=== PATIENT | female | born 1930 | race Caucasian/White ===

== ENCOUNTER 2017-01-03 12:03 | Inpatient (IN) | payer BC, OTHER ==
[2017-01-03] MEDS ORDERED: ACETAMINOPHEN 325 MG TABLET (FP) PO ONE (12:24)
[2017-01-03] MEDS ORDERED: ACETAMINOPHEN 325 MG TABLET (FP) ONE (12:41)
[2017-01-03 13:19] LABS: MCH 27.7 pg (25.7-33.7); MCHC 33.1 g/dl (32.0-36.0); MEAN CELL VOLUME 83.7 fl (80-96); MEAN PLT VOLUME 8.7 fl (7.5-11.1); PLATELET COUNT 194 K/MM3 (134-434); RDW 14.4 % (11.6-15.6); WHITE BLOOD COUNT 12.5 K/mm3 (4.0-10.8)
[2017-01-03 13:59] LABS: PLATELET ESTIMATE ADEQUATE (NORMAL)
[2017-01-03 14:00] LABS: BASOPHIL (MANUAL) 1 % (0-2.0)
--- NOTE | 2017-01-03 14:08 | PDOC ---
History of Present Illness - General Chief Complaint: Respiratory Stated Complaint: FEVER,CHILLS AND SHAKES Time Seen by Provider: 01/03/17 12:05 History Source: Patient, Primary Care Provider Exam Limitations: No Limitations - History of Present Illness Initial Comments: 01/03/17 14:02 CHIEF COMPLAINT: Fever and shaking chills since yesterday HISTORY OF PRESENT ILLNESS: This is an 86-year-old female a history of hypertension and diabetes mellitus who lives independently and continues to drive. She developed symptoms of fever and shaking chills since yesterday afternoon around 5 PM. She felt a little bit weak, but denied any other complaints. Specifically, there was no headache, no earache, no sore throat, no chest pain, and no shortness of breath. There was no nausea, vomiting, or diarrhea. There was no dysuria or frequency of urination. She does have a chronic cough with some white sputum for the past 2 months, but that has not changed. She also has chronic swelling of her ankles with redness of the ankles, for which she takes a water pill. Today she went to see her primary care physician, Dr. Steward in the office above the [facility] pharmacy, and was advised to come to the emergency department for fever workup. Dr. Steward called me and advised that there was no clear source of the fever. Dr. Steward further states that the erythema of the ankles is chronic. She was concerned about possible flu, although the patient does not have any upper respiratory symptoms beyond the cough that has been present for 2 months. REVIEW OF SYSTEMS: GENERAL/CONSTITUTIONAL: Positive fever and chills. Positive weakness. HEAD, EYES, EARS, NOSE AND THROAT: No change in vision. No ear pain or discharge. No sore throat. CARDIOVASCULAR: No chest pain or shortness of breath. Positive history of hypertension. RESPIRATORY: Positive slight cough for 2 months with minor amounts of white sputum. No wheezing or hemoptysis. No pleuritic pain. GASTROINTESTINAL: No nausea, vomiting, diarrhea or constipation. No rectal bleeding. GENITOURINARY: No dysuria, frequency, or change in urination. Positive history of Escherichia coli UTI per Dr. Steward, last treated several months ago. MUSCULOSKELETAL: No joint or muscle swelling or pain. No neck or back pain. SKIN AND BREASTS: Positive chronic swelling and erythema of both ankles. No other rash or bruising. NEUROLOGIC: No headache, vertigo, loss of consciousness, or loss of sensation. PSYCHIATRIC: No depression or anxiety. ENDOCRINE: No increased thirst. No abnormal weight change. Positive history of diabetes mellitus. HEMATOLOGIC/LYMPHATIC: No anemia, easy bleeding, or history of blood clots. Positive history of chronic ankle edema on a diuretic. ALLERGIC/IMMUNOLOGIC: No hives or skin allergy. No latex allergy. Positive history of chronic ankle cellulitis. 01/03/17 14:07 Dr. Steward stated that the temperature was initially normal in the office but went up to 103.0. The patient was then sent to the hospital by ambulance. Past History - Past Medical History Allergies/Adverse Reactions: Allergies Allergy/AdvReac Type Severity Reaction Status Date / Time No Known Allergies Allergy Verified 01/03/17 12:05 Home Medications: Ambulatory Orders Furosemide [Lasix -] 40 mg PO BID 09/26/12 Losartan Potassium [Cozaar] 50 mg PO DAILY 09/26/12 Potassium Chloride [Klor-Con M20] 20 meq PO BID 09/02/13 Atorvastatin Ca [Lipitor] 20 mg PO HS 01/03/17 Ketoconazole 2% Cream [Nizoral 2% Cream -] 1 applic TP DAILY 01/03/17 Levothyroxine [Synthroid -] 75 mcg PO DAILY 01/03/17 Nystatin Powder [Nystop Topical Powder -] 0 gm TP BID 01/03/17 Anemia: Yes Asthma: No Cancer: No Cardiac Disorders: Yes (CAD) CVA: No COPD: No CHF: No Dementia: No Diabetes: Yes GI Disorders: Yes (SBO, VENTRAL HERNIA) Disorders: Yes (UTI) HTN: Yes Hypercholesterolemia: Yes Liver Disease: No Seizures: No Thyroid Disease: Yes (HYPOTHYROID) - Surgical History Abdominal Surgery: No Appendectomy: Yes Cardiac Surgery: No Cholecystectomy: No Lung Surgery: No Orthopedic Surgery: No - Suicide/Smoking/Psychosocial Hx Smoking Status: No Smoking History: Former smoker Have you smoked in the past 12 months: No Number of Cigarettes Smoked Daily: 0 If you are a former smoker, when did you quit?: YEARS AGO PER PT Information on smoking cessation initiated: No Hx Alcohol Use: No Drug/Substance Use Hx: No Substance Use Type: None Hx Substance Use Treatment: No *Physical Exam - Vital Signs Last Vital Signs Temp Pulse Resp BP Pulse Ox 99.4 F 81 20 131/40 97 01/03/17 13:56 01/03/17 13:56 01/03/17 13:56 01/03/17 13:56 01/03/17 13:56 - Physical Exam Comments: 01/03/17 14:08 GENERAL: The patient is awake, alert, and fully oriented, in no acute distress. She is remarkably sharp for her age of 86. HEAD: Normal with no signs of trauma. EYES: Pupils equal, round and reactive to light, positive lens implants, extraocular movements intact, sclera anicteric, conjunctiva clear. ENT: Ears normal, nares patent, oropharynx clear without exudates. Moist mucous membranes. NECK: Normal range of motion, supple without lymphadenopathy, JVD, or masses. LUNGS: Breath sounds equal, clear to auscultation bilaterally. No wheezes, and no crackles. No cough noted during my examination. HEART: Regular rate and rhythm, normal S1 and S2 without murmur, rub or gallop. ABDOMEN: Soft, only obese, nontender, normoactive bowel sounds. No guarding, no rebound. No masses. Negative Durham's sign. EXTREMITIES: Positive bilateral pitting ankle edema. No clubbing or cyanosis. Positive erythema with warmth of both ankles. NEUROLOGICAL: Cranial nerves intact. Normal speech, normal gait. Able to transfer from ambulance stretcher to hospital stretcher without difficulty. PSYCH: Normal mood, normal affect. SKIN: Warm, Dry, normal turgor. Positive erythema and edema of both ankles. Heart Score/ECG Review - ECG Impressions Comment:: 01/03/17 14:11 Twelve-lead EKG was performed and then reviewed by me. The rhythm is normal sinus rhythm at a rate of 82 bpm. There is first-degree AV block. The axis is normal. The QRS and QT intervals are normal. There is no ST elevation or depression. There is low voltage and nonspecific T-wave flattening diffusely. Impression: Normal sinus rhythm with first-degree AV block, low voltage and nonspecific T-wave flattening. 01/03/17 14:15 There are no old EKGs available for comparison. ED Treatment Course - LABORATORY CBC & Chemistry Diagram: 01/03/17 12:54 01/03/17 12:45 - ADDITIONAL ORDERS Additional order review: 01/03/17 12:54 RBC 4.56 MCV 83.7 MCHC 33.1 RDW 14.4 MPV 8.7 Neutrophils % No Result Required. Lymphocytes % No Result Required. - RADIOLOGY Radiology Studies Ordered: Category Date Time Status CHEST PA & LAT [RAD] Stat Radiology 01/03/17 12:25 Taken - Medications Given in the ED: ED Medications Discontinued Medications Generic Name Dose Route Start Last Admin Trade Name Lucy PRN Reason Stop Dose Admin Acetaminophen 650 mg 01/03/17 12:24 01/03/17 12:54 Tylenol - PO 01/03/17 12:25 650 mg ONCE ONE Administration Medical Decision Making - Medical Decision Making 01/03/17 15:33 Patient is an 86-year-old woman with history of hypertension, diabetes mellitus on oral agents, and chronic cellulitis of the ankles secondary to venous stasis disease. Patient is followed by Dr. Steward at [place]. She was in her usual state of health, living independently, until 5 PM yesterday when she developed shaking chills and fever. She also had some symptoms of mild weakness. There was no focal symptoms related to pneumonia, UTI, and no change in her chronic cellulitis. At Dr. Steward's office she was initially 99 but spiked to 103 with shaking chills. She was sent to the ED by ambulance for fever workup. The patient does note a chronic cough 2 months with scant white sputum. That has not changed in the recent days. She denies any urinary tract symptoms. She denies any change in her erythema at the ankles. On examination, the lungs were clear. The mucous membranes were without signs of infection. The abdomen was obese but benign. Extremities were notable for chronic edema with some pitting and significant erythema and increased warmth of both ankles. Fever workup was instituted. Blood and urine cultures were sent. Lactate was assessed and was not elevated at 1.5. White blood cell count is notable for elevation to 12.5 with increased neutrophils to 88%. Chemistry is unremarkable. Urinalysis shows positive nitrites and positive leukocyte esterase but only 4-6 WBCs per high-power field. Chest x-ray showed cardiomegaly but no focal infiltrates. Differential diagnosis at this point is urinary tract infection versus cellulitis. Patient was started on ceftriaxone 1 g IV stat dose along with vancomycin 1 g IV stat dose. These antibiotics were given to cover both urinary tract infection as well as staph or strep from cellulitis. His blood pressure was initially elevated, but on repeat was in the low normal range. Given her chronic edema, a 500 mL normal saline bolus was given. Blood pressure is on continuous non-invasive monitoring. Patient was endorsed to Dr. Wilhelm's team through the IM resident. *DC/Admit/Observation/Transfer Diagnosis at time of Disposition: Cellulitis Qualifiers: Site of cellulitis: extremity Site of cellulitis of extremity: lower extremity Laterality: unspecified laterality Qualified Code(s): L03.119 - Cellulitis of unspecified part of limb; L03.119 - Cellulitis of unspecified part of limb UTI (urinary tract infection) Qualifiers: Urinary tract infection type: acute cystitis Hematuria presence: without hematuria Qualified Code(s): N30.00 - Acute cystitis without hematuria; N30.00 - Acute cystitis without hematuria Sepsis Qualifiers: Sepsis type: sepsis due to unspecified organism Qualified Code(s): A41.9 - Sepsis, unspecified organism; A41.9 - Sepsis, unspecified organism; A41.9 - Sepsis, unspecified organism - Discharge Dispostion Condition at time of disposition: Fair Admit: Yes Decision to Admit order Date/Time: 01/03/17 15:39 Dr. Wilhelm's IM team, endorsed to her resident.
[2017-01-03 14:11] LABS: PH,URINE 7.5 (4.5-8); URINE APPEARANCE Slightly; URINE BILIRUBIN Negative (NEGATIVE); URINE BLOOD Negative (NEGATIVE); URINE GLUCOSE (UA) Negative (NEGATIVE); URINE KETONE Negative (NEGATIVE); URINE NITRITE Positive (NEGATIVE); URINE PROTEIN Negative (NEGATIVE)
[2017-01-03 14:12] LABS: URINE COLOR YELLOW; URINE LEUK ESTERASE 1+ (NEGATIVE)
[2017-01-03 14:27] LABS: VENOUS BLOOD GAS HCO3 25.6 meq/L (19-25)
[2017-01-03 14:28] LABS: VENOUS PH 7.31 (7.32-7.42)
[2017-01-03 14:34] LABS: URINE BACTERIA MANY /hpf (NEGATIVE)
[2017-01-03 14:35] LABS: URINE RBC NONE SEEN /hpf (0-3)
[2017-01-03 14:42] LABS: CREATININE 0.7 mg/dl (0.6-1.3); GLUCOSE,RANDOM 128 mg/dl (74-106)
[2017-01-03 14:43] LABS: ALBUMIN 3.5 g/dl (3.5-5.0); ANION GAP 9 (8-16); BILIRUBIN,TOTAL 0.9 mg/dl (0.2-1.0); CALCIUM 8.6 mg/dl (8.4-10.2); CO2 29 mmol/L (22-28); SGOT/AST 28 U/L (10-42); SGPT/ALT 22 U/L (10-40)
[2017-01-03 14:44] LABS: ALK PHOS 61 U/L (32-92)
[2017-01-03] MEDS ORDERED: CEFTRIAXONE 1 GM in DEXTROSE 5%-WATER - 100 ML IVPB ONE (14:55)
[2017-01-03] MEDS ORDERED: VANCOMYCIN 1,000 MG in DEXTROSE 5%-WATER - 250 ML IVPB ONE (14:56)
[2017-01-03] MEDS ORDERED: cefTRIAXone SODIUM 1 GM VIAL ONE (15:02)
[2017-01-03] MEDS ORDERED: VANCOMYCIN 1,000 MG VIAL (RESTRICTED TO ID ONLY) ONE (15:02)
[2017-01-03] MEDS ORDERED: SODIUM CHLORIDE 500 ML IV STA (15:18)
[2017-01-03 17:35] VITALS: BMI 34.7
--- NOTE | 2017-01-03 19:42 | HP ---
CHIEF COMPLAINT: Fever, Chills, Rigors PCP: Dr. Steward ([place]) HISTORY OF PRESENT ILLNESS: This is a 86 y/o woman with a past medical history of UTIs. Who presents to the ED from her PMD's office with fever T Max 103, chills, and rigors x today. Patient was reports having fever and chills at home all day. Patient reports having a non-productive cough x 2 months. Patient denies dizziness, BRUNO, SOB, CP , AP, N/V/D, constipation, dysuria. ER course was notable for: (1) Sepsis- T Max 102.9, WBC 12.5, Neutrophils 88 (2) UA- +Nitrates, +1 Leukocyte Esterase, Many Bacteria (3) Recent Travel: None PAST MEDICAL HISTORY: HTN DM Hypothyroid UTIs Chronic swelling/erythema ankles/?legs SBO Ventral Hernia PAST SURGICAL HISTORY: Appendectomy Social History: Smoking: Former Alcohol: None Drugs: None Lives alone, fully independent Family History: Non-Contributory Allergies No Known Allergies Allergy (Verified 01/03/17 12:05) HOME MEDICATIONS: Home Medications Medication Instructions Recorded Furosemide [Lasix -] 40 mg PO BID 09/26/12 Losartan Potassium [Cozaar] 50 mg PO DAILY 09/26/12 Potassium Chloride [Klor-Con M20] 20 meq PO BID 09/02/13 Atorvastatin Ca [Lipitor] 20 mg PO HS 01/03/17 Ketoconazole 2% Cream [Nizoral 2% 1 applic TP DAILY 01/03/17 Cream -] Levothyroxine [Synthroid -] 75 mcg PO DAILY 01/03/17 Metformin HCl [Metformin HCl ER] 1,000 mg PO DAILY 01/03/17 Nystatin Powder [Nystop Topical 0 gm TP BID 01/03/17 Powder -] REVIEW OF SYSTEMS CONSTITUTIONAL: fever, chills Absent: diaphoresis, generalized weakness, malaise, loss of appetite, weight change HEENT: Absent: rhinorrhea, nasal congestion, throat pain, throat swelling, difficulty swallowing, mouth swelling, ear pain, eye pain, visual changes CARDIOVASCULAR: Absent: chest pain, syncope, palpitations, irregular heart rate, lightheadedness , peripheral edema RESPIRATORY: cough Absent: shortness of breath, dyspnea with exertion, orthopnea, wheezing, stridor, hemoptysis GASTROINTESTINAL: Absent: abdominal pain, abdominal distension, nausea, vomiting, diarrhea, constipation, melena, hematochezia GENITOURINARY: Absent: dysuria, frequency, urgency, hesitancy, hematuria, flank pain, genital pain MUSCULOSKELETAL: Absent: myalgia, arthralgia, joint swelling, back pain, neck pain SKIN: Absent: rash, itching, pallor HEMATOLOGIC/IMMUNOLOGIC: Absent: easy bleeding, easy bruising, lymphadenopathy, frequent infections ENDOCRINE: Absent: unexplained weight gain, unexplained weight loss, heat intolerance, cold intolerance NEUROLOGIC: Absent: headache, focal weakness or paresthesias, dizziness, unsteady gait, seizure, mental status changes, bladder or bowel incontinence PSYCHIATRIC: Absent: anxiety, depression, suicidal or homicidal ideation, hallucinations. PHYSICAL EXAMINATION GENERAL: Awake, alert, and fully oriented, in no acute distress. HEAD: Normal with no signs of trauma. EYES: Pupils equal, round and reactive to light, extraocular movements intact, sclera anicteric, conjunctiva clear. No lid lag. EARS, NOSE, THROAT: Ears normal, nares patent, oropharynx clear without exudates. Dry mucous membranes. NECK: Normal range of motion, supple without lymphadenopathy, JVD, or masses. LUNGS: Breath sounds equal, clear to auscultation bilaterally. No wheezes, and no crackles. No accessory muscle use. HEART: Regular rate and rhythm, normal S1 and S2 without murmur, rub or gallop. ABDOMEN: Soft, nontender, not distended, normoactive bowel sounds, no guarding, no rebound, no masses. No hepatomegaly or splenomegaly. MUSCULOSKELETAL: Normal range of motion at all joints. No bony deformities or tenderness. No CVA tenderness. UPPER EXTREMITIES: 2+ pulses, warm, well-perfused. No cyanosis. No clubbing. No peripheral edema. LOWER EXTREMITIES: 2+ pulses, warm, well-perfused. No calf tenderness. +2 pitting bilaterally from below the knee to ankle peripheral edema. NEUROLOGICAL: Cranial nerves II-XII intact. Normal speech. Gait not observed. PSYCHIATRIC: Cooperative. Good eye contact. Appropriate mood and affect. SKIN: Grossly erythematous to bilateral lower extremities. warm, dry, normal turgor, no rashes, no lesions noted, normal capillary refill. Laboratory Results - last 24 hr 01/03/17 01/03/17 01/03/17 12:45 12:45 12:54 WBC 12.5 H D RBC 4.56 Hgb 12.6 Hct 38.2 MCV 83.7 MCH 27.7 MCHC 33.1 RDW 14.4 Plt Count 194 MPV 8.7 Neutrophils % No Result Required. Neutrophils % (Manual) 88 H Band Neuts % (Manual) 3 Lymphocytes % No Result Required. Lymphocytes % (Manual) 5 L Monocytes % (Manual) 3 L Basophils % (Manual) 1 Platelet Estimate Adequate VBG pH POC VBG pCO2 POC VBG pO2 Mixed VBG HCO3 Sodium 139 Potassium 4.8 Chloride 101 Carbon Dioxide 29 H Anion Gap 9 BUN 15 Creatinine 0.7 Creat Clearance w eGFR > 60 POC Glucometer Random Glucose 128 H Lactic Acid 1.5 Calcium 8.6 Total Bilirubin 0.9 D AST 28 D ALT 22 D Alkaline Phosphatase 61 D Total Protein 7.0 Albumin 3.5 Urine Color Urine Appearance Urine pH Ur Specific [place] Urine Protein Urine Glucose (UA) Urine Ketones Urine Blood Urine Nitrite Urine Bilirubin Urine Urobilinogen Ur Leukocyte Esterase Urine RBC Urine WBC Ur Epithelial Cells Urine Bacteria 01/03/17 01/03/17 01/03/17 13:15 13:50 20:50 WBC RBC Hgb Hct MCV MCH MCHC RDW Plt Count MPV Neutrophils % Neutrophils % (Manual) Band Neuts % (Manual) Lymphocytes % Lymphocytes % (Manual) Monocytes % (Manual) Basophils % (Manual) Platelet Estimate VBG pH 7.31 L POC VBG pCO2 53.0 H POC VBG pO2 21.2 L Mixed VBG HCO3 25.6 H Sodium Potassium Chloride Carbon Dioxide Anion Gap BUN Creatinine Creat Clearance w eGFR POC Glucometer 133 Random Glucose Lactic Acid Calcium Total Bilirubin AST ALT Alkaline Phosphatase Total Protein Albumin Urine Color Yellow Urine Appearance Slightly Urine pH 7.5 Ur Specific [place] 1.020 Urine Protein Negative Urine Glucose (UA) Negative Urine Ketones Negative Urine Blood Negative Urine Nitrite Positive Urine Bilirubin Negative Urine Urobilinogen 1.0 Ur Leukocyte Esterase 1+ H Urine RBC None seen Urine WBC 4-6 Ur Epithelial Cells None seen Urine Bacteria Many ASSESSMENT/PLAN: This is a 86 y/o woman with a PMHx of: HTN, DM, Hypothyroid, UTIs. SBO, Ventral Hernia. Admitted for Sepsis secondary to UTI, Lower Extremity Cellulitis for further evaluation of their emergent condition. Plan: 1. Sepsis - Likely secondary to UTI vs Cellulitis lower legs - qSOFA 0 - SIRS Criteria Met III- T 102.9, P 98, WBC 12.5 - +leukocytosis with shift - T Max 102.9~ 99.5 after antipyretics/fluid bolus - Blood Cultures-pending - Urine Culture-pending - Influenza swab- negative - Lactic Acid- wnl - Ceftriaxone and Vancomycin given in ED for coverage UTI, staph or strep ( cellulitis), will continue - Appreciate ID Consult - Monitor vitals - Tylenol prn - Monitor CBC, BMP 2. UTI - +E Coli hx - UC-pending - Continue Ceftriaxone - Vitals - Tylenol 3. ?Cellulitis of Lower Extremities - Hx Chronic erythema/swelling - On exam B/L ext +warm grossly erythematous - Given Vancomycin in ED, will continue - Will consult ID for recommendations - Elevate extremities - Monitor vitals - Monitor CBC 4. Hypertension - Monitor BP - Continue Cozaar - Monitor renal function 5. Diabetes Mellitus - BGMs - ISS - Will hold Metformin 2/2 Sepsis concern for Lactic Acidosis 6. Hyperlipidemia - Continue Lipitor - Monitor LFTs 7. Hypothyroid - TSH in am - Continue Levothyroxine 8. FEN - Tolerates PO Fluids - Replete lytes - Low Na, Diabetic Diet 9. DVT Prophylaxis - OOB - Heparin SQ Code Status: Full Code Dispo: Requires Inpatient Care Problem List - Problem (1) Sepsis Code(s): A41.9 - SEPSIS, UNSPECIFIED ORGANISM Qualifiers: Sepsis type: sepsis due to unspecified organism Qualified Code(s): A41.9 - Sepsis, unspecified organism; A41.9 - Sepsis, unspecified organism; A41.9 - Sepsis, unspecified organism (2) UTI (urinary tract infection) Code(s): N39.0 - URINARY TRACT INFECTION, SITE NOT SPECIFIED Qualifiers: Urinary tract infection type: acute cystitis Hematuria presence: without hematuria Qualified Code(s): N30.00 - Acute cystitis without hematuria; N30.00 - Acute cystitis without hematuria (3) Cellulitis Code(s): L03.90 - CELLULITIS, UNSPECIFIED Qualifiers: Site of cellulitis: extremity Site of cellulitis of extremity: lower extremity Laterality: unspecified laterality Qualified Code(s): L03.119 - Cellulitis of unspecified part of limb; L03.119 - Cellulitis of unspecified part of limb (4) HTN (hypertension) Code(s): I10 - ESSENTIAL (PRIMARY) HYPERTENSION (5) Diabetes mellitus Code(s): E11.9 - TYPE 2 DIABETES MELLITUS WITHOUT COMPLICATIONS (6) Hypothyroid Code(s): E03.9 - HYPOTHYROIDISM, UNSPECIFIED (7) DVT prophylaxis Code(s): [id number] - Visit type - Emergency Visit Emergency Visit: Yes ED Registration Date: 01/03/17 Care time: The patient presented to the Emergency Department on the above date and was hospitalized for further evaluation of their emergent condition. - New Patient This patient is new to me today: Yes Date on this admission: 01/03/17 - Critical Care Critical Care patient: No
[2017-01-03] MEDS ORDERED: ACETAMINOPHEN 325 MG TABLET (FP) PO PRN (19:46)
[2017-01-03] MEDS: ATORVASTATIN CA 20 MG TABLET (FP) PO SCH (21:15)
[2017-01-03] MEDS: POTASSIUM CHLORIDE TABS 20 MEQ TABLET.ER (FP) PO SCH (21:15)
[2017-01-03] MEDS: HEPARIN NA (PORCINE) 5,000 UNITS/ML 1ML VIAL SQ SCH (21:15)
[2017-01-03] MEDS: INSULIN SLIDING SCALE (NOVOLOG) 1 VIAL SQ SCH (21:23)
[2017-01-04] MEDS: LEVOTHYROXINE NA 75 MCG TABLET (FP) PO SCH (06:30)
[2017-01-04] MEDS: INSULIN SLIDING SCALE (NOVOLOG) 1 VIAL SQ SCH ×4 (06:30→21:22)
[2017-01-04] MEDS: FUROSEMIDE 40 MG/4 ML INJECTABLE VIAL IVPUSH SCH ×2 (06:30→13:59)
[2017-01-04 07:44] LABS: BASOPHIL 0.2 % (0-2.0); EOSINOPHIL 0.2 % (0-4.5); MCH 28.3 pg (25.7-33.7); MEAN CELL VOLUME 83.2 fl (80-96); MEAN PLT VOLUME 8.1 fl (7.5-11.1); NEUTROPHILS 86.3 % (42.8-82.8); PLATELET COUNT 146 K/MM3 (134-434); RDW 14.6 % (11.6-15.6); WHITE BLOOD COUNT 7.2 K/mm3 (4.0-10.8)
[2017-01-04 08:08] LABS: ANION GAP 6 (8-16); CO2 27 mmol/L (22-28); CREATININE 0.7 mg/dl (0.6-1.3); GLUCOSE,RANDOM 108 mg/dl (74-106); MAGNESIUM 1.6 mg/dL (1.8-2.4)
--- NOTE | 2017-01-04 08:41 | PN ---
Progress Note (short form) - Note Progress Note: ID Consult dictated Bilateral LE cellulitis Possible sepsis secondary to skin source Pending cultures continue empiric ceftriaxone/ vancomycin Elevation
[2017-01-04] MEDS ORDERED: MAGNESIUM SULF 50% (8.12 MEQ/2 ML-1 GM VIAL) IVPB ONE (09:00)
--- NOTE | 2017-01-04 09:24 | CONS ---
DATE OF CONSULTATION: DATE OF DICTATION: 01/04/2017 REASON FOR CONSULTATION: The patient is an 86-year-old female diabetic evaluated for sepsis. HISTORY OF PRESENT ILLNESS: Patient states that she was feeling well until the evening of admission. She developed abrupt onset of fever and shaking chills. She had presented to her primary care physician where she was noted to have a temperature of 103. She was referred to the emergency room. Patient was found on examination to have bilateral lower extremity erythema, warmth, and swelling. She was empirically treated with ceftriaxone and vancomycin for presumed cellulitis. The patient states that several days ago she was picking dry skin off her lower extremities bilaterally. She denies any traumatic injury to her lower extremities. No insect or animal bites or scratches. She denies any history of serious soft tissue infection requiring hospitalization or history of MRSA. She has had no recent hospital admissions. PAST MEDICAL HISTORY: Positive for hypertension, diabetes, coronary artery disease, hypothyroidism, urinary tract infections. PAST SURGICAL HISTORY: Status post ruptured appendix, history of partial small-bowel obstruction in 2012, ventral hernia, sections. ALLERGIES: No known allergies. MEDICATIONS: Include Lasix, Cozaar, Lipitor, Synthroid. SOCIAL HISTORY: She lives at home in the community. She is independent. Former smoker. No history of alcohol abuse. SYSTEMS REVIEW:Neurologic: No loss of consciousness, seizure activity, focal weakness. Cardiac: Negative chest pain or palpitations. Respiratory: Negative cough or sputum production. Gastrointestinal: Negative vomiting or diarrhea. Genitourinary: Negative for a urinary tract infection. LABORATORY DATA: White count on admission 12.5 with a left shift, hematocrit 32.6, platelet count 146. BUN 15, creatinine 0.7. Urinalysis: 4 to 6 white cells. Liver enzymes normal. Chest x-ray shows no acute infiltrate. PHYSICAL EXAMINATION:General: The patient is out of bed to chair. She is awake and alert, in no acute distress, not acutely toxic appearing. Vital Signs: Temperature 98.5, T-max 102.9, blood pressure 100/40, pulse 68, regular, respiration 20 per minute. HEENT: Sclerae anicteric. Cardiac: Heart sounds S1, S2. Lungs: Clear bilaterally. No rhonchi, rales, or wheezing. Abdomen: Obese, soft, nontender. Extremities: Bilateral lower extremity edema 2+. There is confluent erythema and warmth involving both lower extremities, left greater than right, from the area of the foot to the mid tibia. The area involved is warm, slightly tender to touch. There is no crepitus or fluctuance. No lymphangitic streaming. IMPRESSION: 1. Bilateral lower extremity cellulitis. 2. Fever and shaking chills, possible sepsis secondary to skin source. 3. History of diabetes mellitus. RECOMMENDATIONS: Await sepsis workup. Empiric antibiotic coverage with ceftriaxone and vancomycin. Elevation of lower extremities bilaterally. Will follow. Thank you for the kind referral. SADIE CRUZ M.D. [id number]
[2017-01-04] MEDS: CEFTRIAXONE 50 ML IVPB SCH (09:28)
[2017-01-04] MEDS: HEPARIN NA (PORCINE) 5,000 UNITS/ML 1ML VIAL SQ SCH ×2 (09:29→21:14)
[2017-01-04] MEDS: POTASSIUM CHLORIDE TABS 20 MEQ TABLET.ER (FP) PO SCH ×2 (09:29→21:14)
[2017-01-04] MEDS: LOSARTAN POTASSIUM 50 MG TABLET (FP) PO SCH (09:29)
[2017-01-04] MEDS ORDERED: CEFTRIAXONE 1 G/50 ML PREMIX 50 ML IVPB SCH (10:00)
[2017-01-04] MEDS ORDERED: VANCOMYCIN 1,000 MG in DEXTROSE 5%-WATER - 250 ML IVPB SCH (10:00)
[2017-01-04] MEDS ORDERED: CEFTRIAXONE 1 GM in DEXTROSE 5%-WATER - 50 ML IVPB SCH (10:00)
--- NOTE | 2017-01-04 10:14 | PN ---
Physical Exam: SUBJECTIVE: Patient seen and examined, sitting in bedside chair, reports improvement to bilateral lower extremity erythema, patient denies any tactile fever. patient does report her cough is much improved since yesterday. OBJECTIVE: patient is a 86 y/o female with a past medical history of hypertensoin, NIDDM, hypothyroid, chronic urinary tract infection, SBO, ventral hernia. patient was admitted from the emergency department for sepsis, urinary tract infection and cellulitis. Vital Signs Period Temp Pulse Resp BP Sys/Anderson Pulse Ox Last 24 Hr 98.5 F-100.3 F 68-74 18-20 100-126/40-42 95-98 GENERAL: The patient is awake, alert, and fully oriented, in no acute distress. HEAD: Normal with no signs of trauma. EYES: PERRL, extraocular movements intact, sclera anicteric, conjunctiva clear. No ptosis. ENT: Ears normal, nares patent, oropharynx clear without exudates, moist mucous membranes. NECK: Trachea midline, full range of motion, supple. + JVD LUNGS: Breath sounds equal, clear to auscultation bilaterally, no wheezes, no crackles, no accessory muscle use. HEART: Regular rate and rhythm, S1, S2 without murmur, rub or gallop. ABDOMEN: Soft, nontender, nondistended, normoactive bowel sounds, no guarding, no rebound, no hepatosplenomegaly, no masses. EXTREMITIES: 2+ pulses, warm, well-perfused, +2 edema to bilateral lower extremities, venous stasis changes, circumferential edema to distal extremities. NEUROLOGICAL: Cranial nerves II through XII grossly intact. Normal speech, gait not observed. PSYCH: Normal mood, normal affect. SKIN: Warm, dry, normal turgor, no rashes or lesions noted Laboratory Results - last 24 hr 01/03/17 01/04/17 01/04/17 20:50 06:00 06:30 WBC 7.2 D RBC 3.92 Hgb 11.1 D Hct 32.6 MCV 83.2 MCH 28.3 MCHC 34.0 RDW 14.6 Plt Count 146 D MPV 8.1 Neutrophils % 86.3 H Lymphocytes % 7.8 L D Monocytes % 5.5 Eosinophils % 0.2 D Basophils % 0.2 Sodium Potassium Chloride Carbon Dioxide Anion Gap BUN Creatinine POC Glucometer 133 88 Random Glucose Calcium Phosphorus Magnesium 01/04/17 06:30 WBC RBC Hgb Hct MCV MCH MCHC RDW Plt Count MPV Neutrophils % Lymphocytes % Monocytes % Eosinophils % Basophils % Sodium 136 Potassium 3.7 D Chloride 103 Carbon Dioxide 27 Anion Gap 6 L BUN 15 Creatinine 0.7 POC Glucometer Random Glucose 108 H Calcium 8.0 L Phosphorus 3.0 Magnesium 1.6 L Laboratory Tests 01/03/17 13:50 Urine Color Yellow Urine Appearance Slightly Urine pH 7.5 Ur Specific [place] 1.020 Urine Protein Negative Urine Glucose (UA) Negative Urine Ketones Negative Urine Blood Negative Urine Nitrite Positive Urine Bilirubin Negative Urine Urobilinogen 1.0 Ur Leukocyte Esterase 1+ H Urine RBC None seen Urine WBC 4-6 Ur Epithelial Cells None seen Urine Bacteria Many Active Medications Generic Name Dose Route Start Last Admin Trade Name Freq PRN Reason Stop Dose Admin Acetaminophen 650 mg 01/03/17 19:46 01/03/17 21:38 Tylenol - PO 650 mg Q6H PRN Administration FEVER OR PAIN Atorvastatin Calcium 20 mg 01/03/17 22:00 01/03/17 21:15 Lipitor - PO 20 mg HS DICK Administration Furosemide 40 mg 01/04/17 06:00 01/04/17 06:30 Lasix Injection - IVPUSH 40 mg BID@0600,1400 DICK Administration Heparin Sodium (Porcine) 5,000 unit 01/03/17 22:00 01/04/17 09:29 Heparin - SQ 5,000 unit BID DICK Administration Ceftriaxone Sodium 50 mls @ 100 mls/hr 01/04/17 10:00 01/04/17 09:28 Rocephin 1gm Ivpb (Pre-Docked) IVPB 100 mls/hr DAILY DICK Administration Vancomycin HCl 1,250 mg/ 250 mls @ 250 mls/2 hr 01/04/17 10:00 Dextrose IVPB Q24H DICK Insulin Aspart 1 vial 01/03/17 22:00 01/04/17 06:30 Novolog Vial Sliding Scale - SQ Not Given ACHS [facility] Protocol Levothyroxine Sodium 75 mcg 01/04/17 07:00 01/04/17 06:30 Synthroid - PO 75 mcg DAILY@0700 DICK Administration Losartan Potassium 50 mg 01/04/17 10:00 01/04/17 09:29 Cozaar - PO 50 mg DAILY DICK Administration Potassium Chloride 20 meq 01/03/17 22:00 01/04/17 09:29 K-Dur - PO 20 meq BID DICK Administration Microbiology 01/03/17 12:45 Blood - Peripheral Venous Blood Culture - Preliminary NO GROWTH OBTAINED AFTER 24 HOURS, INCUBATION TO CONTINUE FOR 4 DAYS. 01/03/17 14:05 Nasopharyngeal Swab Influenza Types A,B Antigen (MAHOGANY) - Final , negative 01/03/17 14:05 Nasopharyngeal Swab - Final ASSESSMENT/PLAN: 1. ID:Sepsis - secondary for UTI vs Cellulitis lower extremities - pending urine and blood cultures - continue vancomycin (01/03- ) and rocephin (01/03 -), until final cultures are resulted to narrow down antibiotics - leukocytosis resolved no bandemia noted, low grade temp noted - ID (Yann) consulted and followed 2. card congestive heart failure - elevated BNP, 1043, baseline 136, higher than baseline, lasix 40mg QD, monitor renal function - pending echo - appreciate cardiology input 4. Hypertension - Continue Cozaar, strict b/p monitoring - Monitor renal function 5. Diabetes Mellitus - pending hemoglobin a1c, continue fingersticks achs 6. Hyperlipidemia - Continue Lipitor, LFTs WNL 7. Hypothyroid - TSH wnl, Continue Levothyroxine f/e/n - replete magnesium - low sodium diet ppx - heparin sq - pepcid - PT dispo: requires inpatient admission Visit type - Emergency Visit Emergency Visit: Yes ED Registration Date: 01/03/17 Care time: The patient presented to the Emergency Department on the above date and was hospitalized for further evaluation of their emergent condition. - New Patient This patient is new to me today: Yes Date on this admission: 01/04/17 - Critical Care Critical Care patient: No - Discharge Referral Referred to [facility] Med P.C.: No
[2017-01-04] MEDS ORDERED: POTASSIUM CHLORIDE TABS 20 MEQ TABLET.ER (FP) PO ONE (10:30)
[2017-01-04] MEDS: VANCOMYCIN 1,250 MG in DEXTROSE 5%-WATER - 250 ML IVPB SCH (11:19)
[2017-01-04] MEDS ORDERED: INSULIN (NOVOLOG) ASPART 100 UNITS/ML 10ML VIAL ONE ×2 (11:57→21:21)
[2017-01-04 12:54] LABS: THYROXINE (T4) 8.3 ug/dl (4.8-13.9)
[2017-01-04 13:00] LABS: THYROID STIMULATING HORMONE 0.47 uIU/ml (0.358-3.74)
[2017-01-04] MEDS: LACTOBACILLUS ACIDOPHILUS 1 EACH TAB (FP) PO SCH (13:59)
--- NOTE | 2017-01-04 16:42 | EKG ---
Test Reason : Blood Pressure : / mmHG Vent. Rate : 082 BPM Atrial Rate : 082 BPM P-R Int : 230 ms QRS Dur : 082 ms QT Int : 374 ms P-R-T Axes : 071 036 052 degrees QTc Int : 436 ms SINUS RHYTHM WITH 1ST DEGREE A-V BLOCK LOW VOLTAGE QRS NONSPECIFIC T WAVE ABNORMALITY POOR R WAVE PROGRESSION NO PREVIOUS ECGS AVAILABLE Confirmed by MD PEREZ MARJORY ([id number]) on 01/04/2017 4:42:32 PM Referred By: WOODY IVAN Confirmed By:RADHA PEREZ MD
[2017-01-04] MEDS: FAMOTIDINE 20 MG TABLET PO SCH (21:14)
[2017-01-04] MEDS: ATORVASTATIN CA 20 MG TABLET (FP) PO SCH (21:14)
[2017-01-05] MEDS: LEVOTHYROXINE NA 75 MCG TABLET (FP) PO SCH (06:58)
[2017-01-05] MEDS: INSULIN SLIDING SCALE (NOVOLOG) 1 VIAL SQ SCH ×4 (07:00→21:48)
[2017-01-05] MEDS: LACTOBACILLUS ACIDOPHILUS 1 EACH TAB (FP) PO SCH (09:40)
[2017-01-05] MEDS: FAMOTIDINE 20 MG TABLET PO SCH ×2 (09:41→21:32)
[2017-01-05] MEDS: HEPARIN NA (PORCINE) 5,000 UNITS/ML 1ML VIAL SQ SCH ×2 (09:41→21:33)
[2017-01-05] MEDS: LOSARTAN POTASSIUM 50 MG TABLET (FP) PO SCH (09:41)
[2017-01-05] MEDS: POTASSIUM CHLORIDE TABS 20 MEQ TABLET.ER (FP) PO SCH ×2 (09:41→21:32)
[2017-01-05] MEDS: FUROSEMIDE 40 MG/4 ML INJECTABLE VIAL IVPUSH SCH (09:41)
--- NOTE | 2017-01-05 09:41 | PN ---
Physical Exam: SUBJECTIVE: Patient seen and examined. Feels better, although legs more painful than yesterday. OBJECTIVE: Vital Signs Period Temp Pulse Resp BP Sys/Anderson Pulse Ox Last 24 Hr 98.0 F-98.8 F 60-62 16-19 101-117/37-53 99-99 GENERAL: The patient is awake, alert, and fully oriented, in no acute distress. HEAD: Normal with no signs of trauma. EYES: PERRL, extraocular movements intact, sclera anicteric, conjunctiva clear. No ptosis. ENT: Ears normal, nares patent, oropharynx clear without exudates, moist mucous membranes. NECK: Trachea midline, full range of motion, supple. LUNGS: Breath sounds equal, clear to auscultation bilaterally, no wheezes, no crackles, no accessory muscle use. HEART: Regular rate and rhythm, S1, S2 without murmur, rub or gallop. ABDOMEN: Soft, non-tender, reducible ventral hernia. rebound, no hepatosplenomegaly, no masses. EXTREMITIES: 2+ LE edema, erythema extending from midfoot to mid tibia bilaterally, DP/PT pulses 1+, bilateral calf tenderness. NEUROLOGICAL: Cranial nerves II through XII grossly intact. Normal speech, gait not observed. PSYCH: Normal mood, normal affect. SKIN: Warm, dry, normal turgor. Laboratory Results - last 24 hr 01/04/17 01/04/17 01/04/17 06:30 07:30 07:30 POC Glucometer Hemoglobin A1c % 7.3 H D B-Natriuretic Peptide 1043.50 H TSH 0.47 Cancelled 01/04/17 01/04/17 01/04/17 11:21 16:38 21:19 POC Glucometer 152 115 192 Hemoglobin A1c % B-Natriuretic Peptide TSH 01/05/17 06:57 POC Glucometer 121 Hemoglobin A1c % B-Natriuretic Peptide TSH Active Medications Generic Name Dose Route Start Last Admin Trade Name Freq PRN Reason Stop Dose Admin Acetaminophen 650 mg 01/03/17 19:46 01/03/17 21:38 Tylenol - PO 650 mg Q6H PRN Administration FEVER OR PAIN Atorvastatin Calcium 20 mg 01/03/17 22:00 01/04/17 21:14 Lipitor - PO 20 mg HS DICK Administration Famotidine 20 mg 01/04/17 22:00 01/04/17 21:14 Pepcid - PO 20 mg BID DICK Administration Furosemide 40 mg 01/05/17 10:00 Lasix Injection - IVPUSH DAILY DICK Heparin Sodium (Porcine) 5,000 unit 01/03/17 22:00 01/04/17 21:14 Heparin - SQ 5,000 unit BID DICK Administration Ceftriaxone Sodium 50 mls @ 100 mls/hr 01/04/17 10:00 01/04/17 09:28 Rocephin 1gm Ivpb (Pre-Docked) IVPB 100 mls/hr DAILY DICK Administration Vancomycin HCl 1,250 mg/ 250 mls @ 250 mls/2 hr 01/04/17 10:00 01/04/17 11:19 Dextrose IVPB 250 mls/2 hr Q24H DICK Administration Insulin Aspart 1 vial 01/03/17 22:00 01/05/17 07:00 Novolog Vial Sliding Scale - SQ Not Given ACHS [facility] Protocol Lactobacillus Acidophilus 1 tab 01/04/17 13:15 01/04/17 13:59 Bacid - PO 1 tab DAILY DICK Administration Levothyroxine Sodium 75 mcg 01/04/17 07:00 01/05/17 06:58 Synthroid - PO 75 mcg DAILY@0700 DICK Administration Losartan Potassium 50 mg 01/04/17 10:00 01/04/17 09:29 Cozaar - PO 50 mg DAILY DICK Administration Potassium Chloride 20 meq 01/03/17 22:00 01/04/17 21:14 K-Dur - PO 20 meq BID DICK Administration Microbiology Microbiology 01/03/17 13:50 Urine - Urine Clean Catch Urine Culture - Preliminary Lactose Fermenting Neg Bacilli Lactose Fermenting Neg Bacilli#2 01/03/17 12:50 Blood - Peripheral Venous Blood Culture - Preliminary NO GROWTH OBTAINED AFTER 24 HOURS, INCUBATION TO CONTINUE FOR 4 DAYS. 01/03/17 12:45 Blood - Peripheral Venous Blood Culture - Preliminary NO GROWTH OBTAINED AFTER 24 HOURS, INCUBATION TO CONTINUE FOR 4 DAYS. 01/03/17 14:05 Nasopharyngeal Swab Influenza Types A,B Antigen (MAHOGANY) - Final 01/03/17 14:05 Nasopharyngeal Swab - Final Imaging: Echo 01/03: Echodensity seen at base of left atrium of unclear etiology, possibly calcification. Mild LVH. LVSF low-normal. Elevated RVSP. ASSESSMENT/PLAN: 86 year old female with a history of HTN, NIDDM, hypothyroidism , recurrent UTIs, SBO, and ventral hernia admitted with UTI and bilateral LE cellulitis. 1. ID:Sepsis - secondary to UTI vs bilat LE cellulitis - urine culture growing lactose fermenting neg bacilli x 2 - continue Vancomycin (01/03- ) and Rocephin (01/03 -) pending final culture results - leukocytosis, resolved - Obtain bilat duplex LE u/s given significant calf tenderness on exam - ID following - Cardiology evaluation given infections and hypodensity on echo of uncertain etiology/significance 2. CHF - continue Lasix 40mg po daily - cardiology evaluation pending 3. HTN - holding Cozaar today for BP 112/37 4. DM - A1C 7.3 - hold Metformin while inpatient - ISS - FSACHS - diabetic diet 6. Dyslipidemia - continue Lipitor 7. Hypothyroidism - continue levothyroxine 8. F/E/N - Mg repleted yesterday, repeat today - low sodium diet 9. Ppx - Sqh - No indication for GI ppx Dispo: Await blood culture results given shaking chills. Visit type - Emergency Visit Emergency Visit: Yes ED Registration Date: 01/03/17 Care time: The patient presented to the Emergency Department on the above date and was hospitalized for further evaluation of their emergent condition. - New Patient This patient is new to me today: Yes Date on this admission: 01/06/17 - Critical Care Critical Care patient: No - Discharge Referral Referred to [facility] Med P.C.: No
[2017-01-05] MEDS: CEFTRIAXONE 50 ML IVPB SCH (09:42)
[2017-01-05] MEDS: VANCOMYCIN 1,250 MG in DEXTROSE 5%-WATER - 250 ML IVPB SCH (10:22)
[2017-01-05] MEDS: MINERAL OIL/PET HY-PHL TOPICAL OINTMENT 454 GM JAR TP SCH ×2 (10:30→21:31)
[2017-01-05 11:18] LABS: EOSINOPHIL 4.1 % (0-4.5); MCH 27.9 pg (25.7-33.7); MCHC 33.1 g/dl (32.0-36.0); MEAN CELL VOLUME 84.1 fl (80-96); MEAN PLT VOLUME 8.7 fl (7.5-11.1); NEUTROPHILS 67.7 % (42.8-82.8); PLATELET COUNT 133 K/MM3 (134-434); WHITE BLOOD COUNT 4.8 K/mm3 (4.0-10.8)
[2017-01-05 11:42] LABS: ANION GAP 5 (8-16); CALCIUM 8.2 mg/dl (8.4-10.2); CO2 27 mmol/L (22-28); CREATININE 0.6 mg/dl (0.6-1.3); GLUCOSE,RANDOM 177 mg/dl (74-106); MAGNESIUM 2.1 mg/dL (1.8-2.4)
--- NOTE | 2017-01-05 11:44 | CON.CARD ---
Cardiology Consult (text) - Consultation Consultation Note: CC: LE edema/diastolic HF exacerbation 86 y/o with h/o htn, likely diastolic dysfunction/chronic LE edema with venous stasis changes and recent chronic cellulitis, NIDDM, hypothyroid, ventral hernia , UTIs who p/w fever/sepsis and found to have cellulitis and UTI. S/p 500 cc IVF on 01/03. s/p lasix 40 mg IV x 2 01/04 Now transitioned to lasix 40 mg IV daily Who presents to the ED from her PMD's office with fever T Max 103, chills, and rigors. + non-productive cough x 2 months. + LE edema with erythema and calor on presentation. LE edema significantly improved over the past few days on IV lasix. + reasonable functional status - lives independently and performs ADL's without limitation. Patient denies dizziness, palps, orthoponea, SOB, CP, bleeding, transient neurologic symptoms. Denies h/a, AP, N/V/D, constipation, visual disturbances. PAST MEDICAL HISTORY: per hpi PAST SURGICAL HISTORY: Appendectomy Social History: Smoking: Former smoker Alcohol: None Drugs: None Lives alone, fully independent Family History: No premature cad. ros: per hpi Ambulatory Orders Furosemide [Lasix -] 40 mg PO BID 09/26/12 Losartan Potassium [Cozaar] 50 mg PO DAILY 09/26/12 Potassium Chloride [Klor-Con M20] 20 meq PO BID 09/02/13 Atorvastatin Ca [Lipitor] 20 mg PO HS 01/03/17 Ketoconazole 2% Cream [Nizoral 2% Cream -] 1 applic TP DAILY 01/03/17 Levothyroxine [Synthroid -] 75 mcg PO DAILY 01/03/17 Metformin HCl [Metformin HCl ER] 1,000 mg PO DAILY 01/03/17 Nystatin Powder [Nystop Topical Powder -] 0 gm TP BID 01/03/17 Current Medications Acetaminophen (Tylenol -) 650 mg PO Q6H PRN PRN Reason: FEVER OR PAIN Last Admin: 01/03/17 21:38 Dose: 650 mg Atorvastatin Calcium (Lipitor -) 20 mg PO HS REPLACED BY [facility] Last Admin: 01/04/17 21:14 Dose: 20 mg Emollient Ointment (Aquaphor -) 1 applic TP BID REPLACED BY [facility] Last Admin: 01/05/17 10:30 Dose: 1 applic Famotidine (Pepcid -) 20 mg PO BID REPLACED BY [facility] Last Admin: 01/05/17 09:41 Dose: 20 mg Furosemide (Lasix Injection -) 40 mg IVPUSH DAILY REPLACED BY [facility] Last Admin: 01/05/17 09:41 Dose: 40 mg Heparin Sodium (Porcine) (Heparin -) 5,000 unit SQ BID REPLACED BY [facility] Last Admin: 01/05/17 09:41 Dose: 5,000 unit Ceftriaxone Sodium (Rocephin 1gm Ivpb (Pre-Docked)) 50 mls @ 100 mls/hr IVPB DAILY REPLACED BY [facility] Last Admin: 01/05/17 09:42 Dose: 100 mls/hr Vancomycin HCl 1,250 mg/ (Dextrose) 250 mls @ 250 mls/2 hr IVPB Q24H REPLACED BY [facility] Last Admin: 01/05/17 10:22 Dose: 250 mls/2 hr Insulin Aspart (Novolog Vial Sliding Scale -) 1 vial SQ ACHS REPLACED BY [facility] PRN Reason: Protocol Last Admin: 01/05/17 07:00 Dose: Not Given Lactobacillus Acidophilus (Bacid -) 1 tab PO DAILY REPLACED BY [facility] Last Admin: 01/05/17 09:40 Dose: 1 tab Levothyroxine Sodium (Synthroid -) 75 mcg PO DAILY@0700 REPLACED BY [facility] Last Admin: 01/05/17 06:58 Dose: 75 mcg Losartan Potassium (Cozaar -) 50 mg PO DAILY REPLACED BY [facility] Last Admin: 01/05/17 09:41 Dose: 50 mg Potassium Chloride (K-Dur -) 20 meq PO BID REPLACED BY [facility] Last Admin: 01/05/17 09:41 Dose: 20 meq 01/03/17 12:05 Temperature 102.9 F H Vital Signs - 24 hr 01/04/17 01/04/17 01/04/17 14:00 19:31 22:00 Temperature 98.0 F 98.7 F Pulse Rate 61 62 Respiratory 16 16 19 Rate Blood Pressure 101/53 117/38 O2 Sat by Pulse 99 99 99 Oximetry (%) 01/05/17 06:00 Temperature 98.8 F Pulse Rate 60 Respiratory 19 Rate Blood Pressure 112/37 O2 Sat by Pulse Oximetry (%) Intake & Output 01/03/17 01/04/17 01/05/17 01/06/17 07:59 07:59 07:59 07:59 Intake Total 700 1125 475 Output Total 1200 1700 Balance -500 -575 475 Weight 202 lb 5 oz 199 lb 4 oz nad, calm jvd flat, neck supple ctab, nl effort rrr nl s1, s2 no mrg pmi non-displaced pmi + bs soft nt nd, + soft large ventral hernia diminished dp/pt + varicosities + calor, erythema, trace edema of LE no cyanosis, clubbing aaox3 no jaundice, diaphoresis. CBC, BMP 01/05/17 11:05 01/05/17 11:05 Microbiology 01/03/17 13:50 Urine - Urine Clean Catch Urine Culture - Preliminary Lactose Fermenting Neg Bacilli Lactose Fermenting Neg Bacilli#2 Laboratory Tests 01/03/17 01/03/17 01/03/17 12:45 12:45 12:54 Band Neuts % (Manual) 3 Lactic Acid 1.5 Magnesium Total Bilirubin 0.9 D AST 28 D ALT 22 D Alkaline Phosphatase 61 D Albumin 3.5 TSH 01/04/17 01/04/17 01/05/17 06:30 06:30 11:05 Band Neuts % (Manual) Lactic Acid Magnesium 1.6 L 2.1 D Total Bilirubin AST ALT Alkaline Phosphatase Albumin TSH 0.47 06/07/10 01/04/17 16:30 06:30 B-Natriuretic Peptide 136 H* 1043.50 H EKG: SR with av delay, nssttw abnormalities. no acute ischemic changes. echo 12/2016: tds. Mild asym LVH. EF 50-55. nl rv size/fn. borderline lae. echodensity/calcification at base of left atrium. severe mac. mod tr. moderate phtn. ao root calcification. Mild posterior pericardial effusion. cxr: no acute pathology. prominent pericardial fat pad. 01/05 vascular u/s: no dvt. 86 y/o with h/o htn, likely diastolic dysfunction/chronic LE edema with venous stasis changes and recent chronic cellulitis, NIDDM, hypothyroid, ventral hernia , UTIs who p/w fever/sepsis and found to have cellulitis and UTI. diastolic dysfunction/chronic LE edema with venous stasis changes - acute exacerbation - initially s/p 500 cc IVF. s/p lasix 40 mg IV x 2 01/04. Now transitioned to lasix 40 mg IV daily - 01/05: approching euvolemia. May be able to transition to po regimen tomorrow. In light of predominantly right sided congestion, would recommend torsemide 40 mg daily (prior outpatient regimen lasix 40 bid). - echo report reviewed. - daily standing weights, bmp, i/o's. Monitor k on standing repletion. HTN - bp on low end with diastolic pressures in the 30's-40's. Would titrate down losartan dose. - con't statin and add asa for primary prevention.
[2017-01-05] MEDS: ATORVASTATIN CA 20 MG TABLET (FP) PO SCH (21:32)
[2017-01-06] MEDS: LEVOTHYROXINE NA 75 MCG TABLET (FP) PO SCH (06:07)
[2017-01-06] MEDS: INSULIN SLIDING SCALE (NOVOLOG) 1 VIAL SQ SCH ×5 (08:37→22:38)
[2017-01-06 09:02] LABS: BASOPHIL 0.7 % (0-2.0); MCH 28.1 pg (25.7-33.7); MCHC 33.3 g/dl (32.0-36.0); MEAN CELL VOLUME 84.5 fl (80-96); MEAN PLT VOLUME 9.3 fl (7.5-11.1); NEUTROPHILS 59.1 % (42.8-82.8); PLATELET COUNT 146 K/MM3 (134-434); RDW 14.8 % (11.6-15.6); WHITE BLOOD COUNT 4.4 K/mm3 (4.0-10.8)
[2017-01-06 09:12] LABS: ANION GAP 6 (8-16); CALCIUM 8.4 mg/dl (8.4-10.2); CO2 25 mmol/L (22-28); CREATININE 0.6 mg/dl (0.6-1.3); GLUCOSE,RANDOM 109 mg/dl (74-106)
[2017-01-06] MEDS: FUROSEMIDE 40 MG/4 ML INJECTABLE VIAL IVPUSH SCH (09:29)
[2017-01-06] MEDS: LACTOBACILLUS ACIDOPHILUS 1 EACH TAB (FP) PO SCH (09:31)
[2017-01-06] MEDS: MINERAL OIL/PET HY-PHL TOPICAL OINTMENT 454 GM JAR TP SCH ×2 (09:31→21:18)
[2017-01-06] MEDS: ASPIRIN 81 MG CHEWABLE TABLETS PO SCH (09:31)
[2017-01-06] MEDS: HEPARIN NA (PORCINE) 5,000 UNITS/ML 1ML VIAL SQ SCH ×2 (09:31→21:18)
[2017-01-06] MEDS: POTASSIUM CHLORIDE TABS 20 MEQ TABLET.ER (FP) PO SCH (09:32)
[2017-01-06] MEDS: CEFTRIAXONE 50 ML IVPB SCH (09:32)
[2017-01-06] MEDS: FAMOTIDINE 20 MG TABLET PO SCH ×2 (09:32→21:17)
--- NOTE | 2017-01-06 09:32 | PN ---
Physical Exam: SUBJECTIVE: Patient seen and examined. Less pain in legs, feels overall well. OBJECTIVE: Vital Signs Period Temp Pulse Resp BP Sys/Anderson Pulse Ox Last 24 Hr 97.6 F-98.6 F 56-62 18-20 109-139/31-50 96-98 GENERAL: The patient is awake, alert, and fully oriented, in no acute distress. HEAD: Normal with no signs of trauma. EYES: PERRL, extraocular movements intact, sclera anicteric, conjunctiva clear. No ptosis. ENT: Ears normal, nares patent, oropharynx clear without exudates, moist mucous membranes. NECK: Trachea midline, full range of motion, supple. LUNGS: Breath sounds equal, clear to auscultation bilaterally, no wheezes, no crackles, no accessory muscle use. HEART: Regular rate and rhythm, S1, S2 without murmur, rub or gallop. ABDOMEN: Soft, non-tender, reducible ventral hernia. rebound, no hepatosplenomegaly, no masses. EXTREMITIES: DP/PT pulses 1+, warm, erythema from midfoot to mid tibia (improved ), 1+ edema (improved). NEUROLOGICAL: Cranial nerves II through XII grossly intact. Normal speech, gait not observed. PSYCH: Normal mood, normal affect. SKIN: Warm, dry, normal turgor, no rashes or lesions noted Laboratory Results - last 24 hr 01/05/17 01/05/17 01/05/17 11:05 11:05 16:02 WBC 4.8 D RBC 3.99 Hgb 11.1 Hct 33.6 MCV 84.1 MCH 27.9 MCHC 33.1 RDW 15.0 Plt Count 133 L MPV 8.7 Neutrophils % 67.7 D Lymphocytes % 18.1 D Monocytes % 9.1 Eosinophils % 4.1 D Basophils % 1.0 D Sodium 136 Potassium 4.2 Chloride 104 Carbon Dioxide 27 Anion Gap 5 L BUN 15 Creatinine 0.6 POC Glucometer 212 Random Glucose 177 H D Calcium 8.2 L Magnesium 2.1 D 01/05/17 01/06/17 01/06/17 21:37 05:48 06:00 WBC 4.4 RBC 3.89 Hgb 10.9 Hct 32.8 MCV 84.5 MCH 28.1 MCHC 33.3 RDW 14.8 Plt Count 146 MPV 9.3 Neutrophils % 59.1 Lymphocytes % 23.3 D Monocytes % 10.9 H Eosinophils % 6.0 H Basophils % 0.7 Sodium Potassium Chloride Carbon Dioxide Anion Gap BUN Creatinine POC Glucometer 201 109 Random Glucose Calcium Magnesium 01/06/17 06:00 WBC RBC Hgb Hct MCV MCH MCHC RDW Plt Count MPV Neutrophils % Lymphocytes % Monocytes % Eosinophils % Basophils % Sodium 141 Potassium 5.0 Chloride 110 H Carbon Dioxide 25 Anion Gap 6 L BUN 13 Creatinine 0.6 POC Glucometer Random Glucose 109 H D Calcium 8.4 Magnesium 2.0 Active Medications Generic Name Dose Route Start Last Admin Trade Name Freq PRN Reason Stop Dose Admin Acetaminophen 650 mg 01/03/17 19:46 01/03/17 21:38 Tylenol - PO 650 mg Q6H PRN Administration FEVER OR PAIN Aspirin 81 mg 01/06/17 10:00 Asa - PO DAILY DICK Atorvastatin Calcium 20 mg 01/03/17 22:00 01/05/17 21:32 Lipitor - PO 20 mg HS DICK Administration Emollient Ointment 1 applic 01/05/17 10:15 01/05/17 21:31 Aquaphor - TP 1 applic BID DICK Administration Famotidine 20 mg 01/04/17 22:00 01/05/17 21:32 Pepcid - PO 20 mg BID DICK Administration Furosemide 40 mg 01/05/17 10:00 01/05/17 09:41 Lasix Injection - IVPUSH 40 mg DAILY DICK Administration Heparin Sodium (Porcine) 5,000 unit 01/03/17 22:00 01/05/17 21:33 Heparin - SQ 5,000 unit BID DICK Administration Ceftriaxone Sodium 50 mls @ 100 mls/hr 01/04/17 10:00 01/05/17 09:42 Rocephin 1gm Ivpb (Pre-Docked) IVPB 100 mls/hr DAILY DICK Administration Vancomycin HCl 1,250 mg/ 250 mls @ 250 mls/2 hr 01/04/17 10:00 01/05/17 10:22 Dextrose IVPB 250 mls/2 hr Q24H DICK Administration Insulin Aspart 1 vial 01/03/17 22:00 01/06/17 08:37 Novolog Vial Sliding Scale - SQ Not Given ACHS DICK Protocol Lactobacillus Acidophilus 1 tab 01/04/17 13:15 01/05/17 09:40 Bacid - PO 1 tab DAILY DICK Administration Levothyroxine Sodium 75 mcg 01/04/17 07:00 01/06/17 06:07 Synthroid - PO 75 mcg DAILY@0700 DICK Administration Losartan Potassium 25 mg 01/06/17 10:00 Cozaar - PO DAILY DICK Potassium Chloride 20 meq 01/03/17 22:00 01/05/17 21:32 K-Dur - PO 20 meq BID DICK Administration Microbiology 01/03/17 13:50 Urine - Urine Clean Catch Urine Culture - Final Klebsiella Pneumoniae Escherichia Coli 01/03/17 12:50 Blood - Peripheral Venous Blood Culture - Preliminary NO GROWTH OBTAINED AFTER 48 HOURS, INCUBATION TO CONTINUE FOR 3 DAYS. 01/03/17 12:45 Blood - Peripheral Venous Blood Culture - Preliminary NO GROWTH OBTAINED AFTER 48 HOURS, INCUBATION TO CONTINUE FOR 3 DAYS. 01/03/17 14:05 Nasopharyngeal Swab Influenza Types A,B Antigen (MAHOGANY) - Final 01/03/17 14:05 Nasopharyngeal Swab - Final IMAGING: Echo 01/03: Echodensity seen at base of left atrium of unclear etiology, possibly calcification. Mild LVH. LVSF low-normal. Elevated RVSP. ASSESSMENT/PLAN: 86 year old female with a history of HTN, NIDDM, hypothyroidism , recurrent UTIs, SBO, and ventral hernia admitted with UTI and bilateral LE cellulitis. 1. ID:Sepsis - secondary to UTI vs bilat LE cellulitis - urine culture growing Klebsiella pneumoniae and E coli, sensitivities pending - continue Vancomycin (01/03- ) and Rocephin (01/03 -) pending final culture results - leukocytosis, resolved - Obtain bilat duplex LE u/s given significant calf tenderness on exam - ID following - Cardiology reviewed echocardiogram and findings not concerning for endocarditis 2. CHF - continue Lasix 40mg po daily - cardiology evaluation pending 3. HTN -At goal, continue Cozaar 4. DM - A1C 7.3 - hold Metformin while inpatient - ISS - FSACHS - diabetic diet 6. Dyslipidemia - continue Lipitor 7. Hypothyroidism - continue levothyroxine 8. F/E/N - Mg repleted yesterday, repeat today - low sodium diet 9. Ppx - Sqh - No indication for GI ppx Dispo: Requires inpatient services.
[2017-01-06] MEDS ORDERED: LOSARTAN POTASSIUM 25 MG TABLET PO SCH (10:00)
[2017-01-06] MEDS ORDERED: INSULIN (NOVOLOG) ASPART 100 UNITS/ML 10ML VIAL ONE ×2 (11:36→16:33)
[2017-01-06] MEDS: VANCOMYCIN 1,250 MG in DEXTROSE 5%-WATER - 250 ML IVPB SCH (12:30)
[2017-01-06] MEDS: ATORVASTATIN CA 20 MG TABLET (FP) PO SCH (21:17)
[2017-01-07] MEDS: INSULIN SLIDING SCALE (NOVOLOG) 1 VIAL SQ SCH ×2 (06:45→11:20)
[2017-01-07] MEDS: LEVOTHYROXINE NA 75 MCG TABLET (FP) PO SCH (06:45)
[2017-01-07 06:51] VITALS: TEMP 97.8
--- NOTE | 2017-01-07 08:13 | PN ---
Physical Exam: SUBJECTIVE: Patient seen and examined OBJECTIVE: Vital Signs Period Temp Pulse Resp BP Sys/Anderson Pulse Ox Last 24 Hr 97.5 F-97.8 F 55-98 16-18 114-167/37-68 96-98 GENERAL: The patient is awake, alert, and fully oriented, in no acute distress. HEAD: Normal with no signs of trauma. EYES: PERRL, extraocular movements intact, sclera anicteric, conjunctiva clear. No ptosis. ENT: Ears normal, nares patent, oropharynx clear without exudates, moist mucous membranes. NECK: Trachea midline, full range of motion, supple. LUNGS: Breath sounds equal, clear to auscultation bilaterally, no wheezes, no crackles, no accessory muscle use. HEART: Regular rate and rhythm, S1, S2 without murmur, rub or gallop. ABDOMEN: Soft, nontender, nondistended, normoactive bowel sounds, no guarding, no rebound, no hepatosplenomegaly, no masses. EXTREMITIES: 2+ pulses, warm, well-perfused, no edema. NEUROLOGICAL: Cranial nerves II through XII grossly intact. Normal speech, gait not observed. PSYCH: Normal mood, normal affect. SKIN: Warm, dry, normal turgor, no rashes or lesions noted Laboratory Results - last 24 hr 01/06/17 01/06/17 01/06/17 06:00 06:00 11:33 WBC 4.4 RBC 3.89 Hgb 10.9 Hct 32.8 MCV 84.5 MCH 28.1 MCHC 33.3 RDW 14.8 Plt Count 146 MPV 9.3 Neutrophils % 59.1 Lymphocytes % 23.3 D Monocytes % 10.9 H Eosinophils % 6.0 H Basophils % 0.7 Sodium 141 Potassium 5.0 Chloride 110 H Carbon Dioxide 25 Anion Gap 6 L BUN 13 Creatinine 0.6 POC Glucometer 179 Random Glucose 109 H D Calcium 8.4 Magnesium 2.0 Vancomycin Pre-Dose 01/06/17 01/06/17 01/06/17 16:31 21:55 Unknown WBC RBC Hgb Hct MCV MCH MCHC RDW Plt Count MPV Neutrophils % Lymphocytes % Monocytes % Eosinophils % Basophils % Sodium Potassium Chloride Carbon Dioxide Anion Gap BUN Creatinine POC Glucometer 167 164 Random Glucose Calcium Magnesium Vancomycin Pre-Dose 12.366 H 01/07/17 06:32 WBC RBC Hgb Hct MCV MCH MCHC RDW Plt Count MPV Neutrophils % Lymphocytes % Monocytes % Eosinophils % Basophils % Sodium Potassium Chloride Carbon Dioxide Anion Gap BUN Creatinine POC Glucometer 116 Random Glucose Calcium Magnesium Vancomycin Pre-Dose Active Medications Generic Name Dose Route Start Last Admin Trade Name Jemalq PRN Reason Stop Dose Admin Acetaminophen 650 mg 01/03/17 19:46 01/03/17 21:38 Tylenol - PO 650 mg Q6H PRN Administration FEVER OR PAIN Aspirin 81 mg 01/06/17 10:00 01/06/17 09:31 Asa - PO 81 mg DAILY DICK Administration Atorvastatin Calcium 20 mg 01/03/17 22:00 01/06/17 21:17 Lipitor - PO 20 mg HS DICK Administration Emollient Ointment 1 applic 01/05/17 10:15 01/06/17 21:18 Aquaphor - TP 1 applic BID DICK Administration Famotidine 20 mg 01/04/17 22:00 01/06/17 21:17 Pepcid - PO 20 mg BID DICK Administration Furosemide 40 mg 01/05/17 10:00 01/06/17 09:29 Lasix Injection - IVPUSH 40 mg DAILY DICK Administration Heparin Sodium (Porcine) 5,000 unit 01/03/17 22:00 01/06/17 21:18 Heparin - SQ 5,000 unit BID DICK Administration Ceftriaxone Sodium 50 mls @ 100 mls/hr 01/04/17 10:00 01/06/17 09:32 Rocephin 1gm Ivpb (Pre-Docked) IVPB 100 mls/hr DAILY DICK Administration Vancomycin HCl 1,250 mg/ 250 mls @ 250 mls/2 hr 01/04/17 10:00 01/06/17 12:30 Dextrose IVPB 250 mls/2 hr Q24H DICK Administration Insulin Aspart 1 vial 01/03/17 22:00 01/07/17 06:45 Novolog Vial Sliding Scale - SQ Not Given ACHS DICK Protocol Lactobacillus Acidophilus 1 tab 01/04/17 13:15 01/06/17 09:31 Bacid - PO 1 tab DAILY DICK Administration Levothyroxine Sodium 75 mcg 01/04/17 07:00 01/07/17 06:45 Synthroid - PO 75 mcg DAILY@0700 DICK Administration Losartan Potassium 25 mg 01/06/17 10:00 01/06/17 09:32 Cozaar - PO 25 mg DAILY DICK Administration ASSESSMENT/PLAN:
--- NOTE | 2017-01-07 08:53 | PN ---
Progress Note, Physician History of Present Illness: Awake, alert OOB in chair C/O minimal discomfort L LE No fever/ chills No urinary tract symptoms - Current Medication List Current Medications: Active Medications Acetaminophen (Tylenol -) 650 mg PO Q6H PRN PRN Reason: FEVER OR PAIN Last Admin: 01/03/17 21:38 Dose: 650 mg Aspirin (Asa -) 81 mg PO DAILY [facility] Last Admin: 01/06/17 09:31 Dose: 81 mg Atorvastatin Calcium (Lipitor -) 20 mg PO HS DICK Last Admin: 01/06/17 21:17 Dose: 20 mg Emollient Ointment (Aquaphor -) 1 applic TP BID [facility] Last Admin: 01/06/17 21:18 Dose: 1 applic Famotidine (Pepcid -) 20 mg PO BID [facility] Last Admin: 01/06/17 21:17 Dose: 20 mg Furosemide (Lasix Injection -) 40 mg IVPUSH DAILY [facility] Last Admin: 01/06/17 09:29 Dose: 40 mg Heparin Sodium (Porcine) (Heparin -) 5,000 unit SQ BID [facility] Last Admin: 01/06/17 21:18 Dose: 5,000 unit Ceftriaxone Sodium (Rocephin 1gm Ivpb (Pre-Docked)) 50 mls @ 100 mls/hr IVPB DAILY [facility] Last Admin: 01/06/17 09:32 Dose: 100 mls/hr Vancomycin HCl 1,250 mg/ (Dextrose) 250 mls @ 250 mls/2 hr IVPB Q24H [facility] Last Admin: 01/06/17 12:30 Dose: 250 mls/2 hr Insulin Aspart (Novolog Vial Sliding Scale -) 1 vial SQ ACHS [facility] PRN Reason: Protocol Last Admin: 01/07/17 06:45 Dose: Not Given Lactobacillus Acidophilus (Bacid -) 1 tab PO DAILY [facility] Last Admin: 01/06/17 09:31 Dose: 1 tab Levothyroxine Sodium (Synthroid -) 75 mcg PO DAILY@0700 [facility] Last Admin: 01/07/17 06:45 Dose: 75 mcg Losartan Potassium (Cozaar -) 25 mg PO DAILY [facility] Last Admin: 01/06/17 09:32 Dose: 25 mg - Objective Vital Signs: Vital Signs Temperature 97.8 F 01/07/17 06:00 Pulse Rate 98 H 01/07/17 06:00 Respiratory Rate 16 01/07/17 06:00 Blood Pressure 120/42 01/07/17 06:00 O2 Sat by Pulse Oximetry (%) 98 01/06/17 22:00 Constitutional: Yes: No Distress, Obese Cardiovascular: Yes: Regular Rate and Rhythm, S1, S2 Respiratory: Yes: CTA Bilaterally Gastrointestinal: Yes: Normal Bowel Sounds, Soft, Abdomen, Obese. No: Tenderness Extremities: Yes: Other (decreased erythema LE bilaterally No warmth or tenderness No lymphangitic streaking) Assessment/Plan Bilateral LE cellulitis- improved Fever/ leukocytosis- resolved Asymptomatic bacteruria May substitute po Keflex 500mg q6h x 7d
[2017-01-07 09:11] LABS: BASOPHIL 0.6 % (0-2.0); EOSINOPHIL 5.6 % (0-4.5); MCHC 33.3 g/dl (32.0-36.0); MEAN CELL VOLUME 83.9 fl (80-96); MEAN PLT VOLUME 9.1 fl (7.5-11.1); NEUTROPHILS 57.6 % (42.8-82.8); PLATELET COUNT 180 K/MM3 (134-434); RDW 14.7 % (11.6-15.6); WHITE BLOOD COUNT 4.5 K/mm3 (4.0-10.8)
[2017-01-07 09:23] LABS: ANION GAP 4 (8-16); CALCIUM 8.7 mg/dl (8.4-10.2); CO2 28 mmol/L (22-28); CREATININE 0.8 mg/dl (0.6-1.3); GLUCOSE,RANDOM 116 mg/dl (74-106)
[2017-01-07] MEDS ORDERED: REFRIGERATED ANITBIOTICS ONE (09:43)
--- NOTE | 2017-01-07 09:44 | DS ---
Physical Exam: SUBJECTIVE: Patient seen and examined, patient reports feeling much better, denies any chest pain or shortness of breath, reports swelling to lower extremities is much improved. OBJECTIVE: Patient is a 86 y/o woman with a past medical history of UTIs. Who presents to the ED from her PMD's office with fever T Max 103, chills, and rigors x today. Patient was reports having fever and chills at home all day. Patient reports having a non-productive cough x 2 months. Patient denies dizziness, BRUNO, SOB, CP , AP, N/V/D, constipation, dysuria. ER course was notable for: (1) Sepsis- T Max 102.9, WBC 12.5, Neutrophils 88 (2) UA- +Nitrates, +1 Leukocyte Esterase, Many Bacteria Vital Signs Period Temp Pulse Resp BP Sys/Anderson Pulse Ox Last 24 Hr 97.5 F-97.8 F 55-98 16-18 115-167/37-68 98-98 PHYSICAL EXAM GENERAL: The patient is awake, alert, and fully oriented, in no acute distress. HEAD: Normal with no signs of trauma. EYES: PERRL, extraocular movements intact, sclera anicteric, conjunctiva clear. No ptosis. ENT: Ears normal, nares patent, oropharynx clear without exudates, moist mucous membranes. NECK: Trachea midline, full range of motion, supple. LUNGS: Breath sounds equal, clear to auscultation bilaterally, no wheezes, no crackles, no accessory muscle use. HEART: Regular rate and rhythm, S1, S2 without murmur, rub or gallop. ABDOMEN: Soft, non-tender, reducible ventral hernia. rebound, no hepatosplenomegaly, no masses. EXTREMITIES: DP/PT pulses 1+, warm, erythema from midfoot to mid tibia (improved ), 1+ edema (improved). NEUROLOGICAL: Cranial nerves II through XII grossly intact. Normal speech, gait not observed. PSYCH: Normal mood, normal affect. SKIN: Warm, dry, normal turgor, no rashes or lesions noted LABS Laboratory Results - last 24 hr 01/06/17 01/06/17 01/06/17 11:33 16:31 21:55 WBC RBC Hgb Hct MCV MCH MCHC RDW Plt Count MPV Neutrophils % Lymphocytes % Monocytes % Eosinophils % Basophils % Sodium Potassium Chloride Carbon Dioxide Anion Gap BUN Creatinine POC Glucometer 179 167 164 Random Glucose Calcium Vancomycin Pre-Dose 01/06/17 01/07/17 01/07/17 Unknown 06:32 07:15 WBC 4.5 RBC 4.20 Hgb 11.7 Hct 35.2 MCV 83.9 MCH 28.0 MCHC 33.3 RDW 14.7 Plt Count 180 D MPV 9.1 Neutrophils % 57.6 Lymphocytes % 26.1 Monocytes % 10.1 Eosinophils % 5.6 H Basophils % 0.6 Sodium Potassium Chloride Carbon Dioxide Anion Gap BUN Creatinine POC Glucometer 116 Random Glucose Calcium Vancomycin Pre-Dose 12.366 H 01/07/17 07:15 WBC RBC Hgb Hct MCV MCH MCHC RDW Plt Count MPV Neutrophils % Lymphocytes % Monocytes % Eosinophils % Basophils % Sodium 139 Potassium 4.5 Chloride 107 Carbon Dioxide 28 Anion Gap 4 L BUN 15 Creatinine 0.8 D POC Glucometer Random Glucose 116 H Calcium 8.7 Vancomycin Pre-Dose Microbiology 01/03/17 12:50 Blood - Peripheral Venous Blood Culture - Preliminary NO GROWTH OBTAINED AFTER 72 HOURS, INCUBATION TO CONTINUE FOR 2 DAYS. 01/03/17 12:45 Blood - Peripheral Venous Blood Culture - Preliminary NO GROWTH OBTAINED AFTER 72 HOURS, INCUBATION TO CONTINUE FOR 2 DAYS. 01/03/17 13:50 Urine - Urine Clean Catch Urine Culture - Final Klebsiella Pneumoniae Escherichia Coli 01/03/17 14:05 Nasopharyngeal Swab Influenza Types A,B Antigen (MAHOGANY) - Final 01/03/17 14:05 Nasopharyngeal Swab - Final IMAGING: Echo 01/03: Echodensity seen at base of left atrium of unclear etiology, possibly calcification. Mild LVH. LVSF low-normal. Elevated RVSP. chest xray 01/03: cardiomegly, no acute pathology ultrasound of bilateral lower extremities: no dvt noted HOSPITAL COURSE: Patient was admitted for sepsis secondary to UTI vs bilat LE cellulitis. Urine culture growing Klebsiella pneumoniae and E coli, sensitive to Vancomycin (01/03-01/07) and Rocephin (01/03 -01/07). Leuocytosis resolved and patient is afebrile. Dr Lerner, infectious disease was consulted and followed patient throughout admission. Cardiology reviewed echocardiogram and findings not concerning for endocarditis. Acute Diastolic congestive heart failure, patient was diuressed with lasix 40mg IV BID on hospital day 1 then transitioned to toresmide 20mg QD. Lipitor was continued throughout admission, LFT's was wnl. Training Facilitator, Dr Armenta was consulted. Patient has a past medical history of hypertension, blood pressure remained at goal, cozar was decreased to 25mg. Patient has a past medical history of NIDDM. hemoglobin A1C 7.3, Metformin held while inpatient, fingersticks achs with regular insulin sliding scale was given throughout admission. PLAN - discharge home with visiting nurse services, [facility] congestive heart failure program. - keflex 500mg q6h for 7 days - continue cozar 25mg qd and toursemide - strict follow up with the carburetor mechanic, Dr Armenta within 2 weeks - return precautions reviewed, ie chest pain, fever, shortness of breath, patient must return to the emergency department. Date of Admission:01/03/17 Date of Discharge: 01/07/17 Minutes to complete discharge: 45 Discharge Summary Reason For Visit: CELLULITIS ON LEGS,UTI Current Active Problems Cellulitis (Acute) DVT prophylaxis (Acute) Diabetes mellitus (Acute) HTN (hypertension) (Acute) Hypothyroid (Acute) Sepsis (Acute) UTI (urinary tract infection) (Acute) Condition: Improved - Instructions Diet, Activity, Other Instructions: YOU WERE ADMITTED TO THE HOSPITAL FOR SEPSIS DUE TO CELLULITES AND URINARY TRACT INFECTION AND DIASTOLIC CONGESTIVE HEART FAILURE - YOU WERE TREATED WITH IV ANTIBIOTICS THROUGHOUT YOUR HOSPITALIZATION, AND DISCHARGED WITH A PRESCRIPTION FOR KEFLEX 500MG EVER 6 HOURS FOR THE NEXT 7 DAYS. PLEASE TAKE KEFLEX PRESCRIBED. - YOUR COZAAR WAS DECREASED TO 25MG DAILY. LASIX WAS DISCONTINUED AND TOURESMIDE 20MG DAILY WAS ADDED. - PLEASE FOLLOW UP WITH THE COMMUNITY COORDINATOR FOR [employer], DR ARMENTA WITHIN 2 WEEKS - PLEASE FOLLOW UP WITH YOUR PRIMARY CARE PHYSICIAN, DR STEWARD WITHIN 1 WEEK - IF ANY NEW OR PERSISTENT SYMPTOMS DEVELOP PLEASE RETURN TO THE EMERGENCY DEPARTMENT Referrals: Yanni Steward [Non Staff, Medical] - 1 Week Barbie Armenta MD [Staff Physician] - 2 Weeks Disposition: VNS/HOME HEALTH CARE - Home Medications Comprehensive Discharge Medication List: Ambulatory Orders Furosemide [Lasix -] 40 mg PO BID 09/26/12 Losartan Potassium [Cozaar] 50 mg PO DAILY 09/26/12 Potassium Chloride [Klor-Con M20] 20 meq PO BID 09/02/13 Atorvastatin Ca [Lipitor] 20 mg PO HS 01/03/17 Ketoconazole 2% Cream [Nizoral 2% Cream -] 1 applic TP DAILY 01/03/17 Levothyroxine [Synthroid -] 75 mcg PO DAILY 01/03/17 Metformin HCl [Metformin HCl ER] 1,000 mg PO DAILY 01/03/17 Nystatin Powder [Nystop Topical Powder -] 0 gm TP BID 01/03/17 This patient is new to me today: No Emergency Visit: Yes ED Registration Date: 01/03/17 Care time: The patient presented to the Emergency Department on the above date and was hospitalized for further evaluation of their emergent condition. Critical Care patient: No - Discharge Referral Referred to [facility] Med P.C.: No
[2017-01-07] MEDS: FAMOTIDINE 20 MG TABLET PO SCH (09:48)
[2017-01-07] MEDS: ASPIRIN 81 MG CHEWABLE TABLETS PO SCH (09:48)
[2017-01-07] MEDS: CEFTRIAXONE 50 ML IVPB SCH (09:48)
[2017-01-07] MEDS: HEPARIN NA (PORCINE) 5,000 UNITS/ML 1ML VIAL SQ SCH (09:49)
[2017-01-07] MEDS: MINERAL OIL/PET HY-PHL TOPICAL OINTMENT 454 GM JAR TP SCH (09:49)
[2017-01-07] MEDS: LACTOBACILLUS ACIDOPHILUS 1 EACH TAB (FP) PO SCH (09:49)
[2017-01-07 10:04] VITALS: BP 125/51; PULSE 63
[2017-01-07] MEDS: VANCOMYCIN 1,250 MG in DEXTROSE 5%-WATER - 250 ML IVPB SCH (10:15)
[2017-01-07] MEDS ORDERED: TORSEMIDE 20 MG TABLET (FP) PO SCH (10:45)
[2017-01-07] MEDS ORDERED: INSULIN (NOVOLOG) ASPART 100 UNITS/ML 10ML VIAL ONE (11:19)
== END 2017-01-07 12:30 | disposition home health service (06) | DRG 871 ==
LOC: FER 12:03 → FM/S 17:03
PROVIDERS: ADMIT Internal Medicine; ATTEND Nurse Practitioner Family
DX: A41.9 Sepsis, unspecified organism (principal); I50.31 Acute diastolic (congestive) heart failure; L03.119 Cellulitis of unspecified part of limb; N39.0 Urinary tract infection, site not specified; I11.0 Hypertensive heart disease with heart failure; I25.10 Atherosclerotic heart disease of native coronary artery without angina pectoris; E03.9 Hypothyroidism, unspecified; D64.9 Anemia, unspecified; E11.9 Type 2 diabetes mellitus without complications; K43.9 Ventral hernia without obstruction or gangrene; I10 Essential (primary) hypertension; E78.5 Hyperlipidemia, unspecified; B96.29 Other Escherichia coli [E. coli] as the cause of diseases classified elsewhere; Z87.891 Personal history of nicotine dependence; D72.828 Other elevated white blood cell count
CPT/HCPCS: 36415; 71020-TC; 80048; 80053; 81003; 81015; 82803; 83036; 83605; 83735; 83880; 84100; 84436; 84443; 85025; 87040; 87077; 87086; 87186; 87804; 93005; 93306-TC; 93970-TC; 97116-GP; 97161-GP; 99283-25; G0480; J1644

== ENCOUNTER → 2017-06-25 | Day surgery (SDC) | payer OTHER ==
--- NOTE | 2017-06-27 13:59 | PATH ---
Surgical Pathology Report Patient Name: LINO WELLS [place]. Rec. #: [id number] /Age/Gender: 1930 (Age: 87) / F Account: [id number] Location: [facility] [place] Taken: 06/25/2017 Received: 06/25/2017 Reported: 06/27/2017 Physicians: Otto Salvador M.D. Specimen(s) Received A: RIGHT BREAST SPECIMEN WITH CALCIFICATIONS B: RIGHT BREAST SPECIMEN WITHOUT CALCIFICATIONS Clinical History Nonpalpable lesion Mammographic findings: Microcalcification, suspicious Final Diagnosis A. 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 B. BREAST, RIGHT, WITHOUT CALCIFICATIONS: BENIGN BREAST TISSUE. Electronically Signed My Murray M.D. Gross Description A. Received in formalin, labeled "right breast with calcification," are multiple garcia-yellow, cylindrical portions of fibroadipose tissue ranging from 0.3-1.4 cm. in length and averaging 0.2 cm. in diameter. The specimen is submitted in toto in one cassette. B. Received in formalin, labeled "right breast without calcification," are multiple garcia-yellow, cylindrical portions of fibroadipose tissue ranging from 0.3-1.2 cm. in length and averaging 0.2 cm. in diameter. The specimen is submitted in toto in 2 cassettes. Time to formalin fixation: 5 minutes Total formalin fixation time: Approximately [address] [facility]/06/26/2017 [facility]/06/26/2017
== END | disposition home or self-care (01) ==
LOC: FMAMMOTONE 08:48
PROVIDERS: ATTEND Surgery
PROC: 0HBT3ZX Excision of Right Breast, Percutaneous Approach, Diagnostic (ICD-10-PCS; principal; 2017-06-25)
DX: D24.1 Benign neoplasm of right breast (principal); R92.1 Mammographic calcification found on diagnostic imaging of breast; N64.89 Other specified disorders of breast
CPT/HCPCS: 19081; 87899; 88305-TC; A4648

== ENCOUNTER 2017-10-28 07:15 | Observation (INO) | payer OTHER ==
--- NOTE | 2017-10-28 07:34 | PDOC ---
History of Present Illness - General Chief Complaint: Weakness Stated Complaint: WEAKNESS Time Seen by Provider: 10/28/17 07:17 History Source: Patient, Old Records Exam Limitations: No Limitations - History of Present Illness Initial Comments: 10/28/17 07:30 87 year old F c/ hx of HTN, DM, CHF, thyroid disorder, frequent UTI, lymphedema p/w weakness x several days. The patient reports that she has been experiencing intermittent chills but denies kimberlee fevers. States that she has been feeling generally weak, but denies any focal pain. Denies chest pain, shortness of breath, abdominal pain, nausea, vomiting, diarrhea, dysuria. Pt has chronic lower extremity lymphedema, but does not think that the redness on the lower extremities are worse than usual. Pt lives at home by herself. Past History - Past Medical History Allergies/Adverse Reactions: Allergies Allergy/AdvReac Type Severity Reaction Status Date / Time No Known Allergies Allergy Verified 10/28/17 07:33 Home Medications: Ambulatory Orders Atorvastatin Ca [Lipitor] 20 mg PO HS 01/03/17 Ketoconazole 2% Cream [Nizoral 2% Cream -] 1 applic TP DAILY 01/03/17 Levothyroxine [Synthroid -] 75 mcg PO DAILY 01/03/17 Metformin HCl [Metformin HCl ER] 1,000 mg PO DAILY 01/03/17 Nystatin Powder [Nystop Powder -] 0 gm TP BID 01/03/17 Acetaminophen [Tylenol .Regular Strength -] 650 mg PO Q6H PRN #0 tablet Aspirin [ASA -] 81 mg PO DAILY #30 tab.chew 01/07/17 Famotidine [Pepcid -] 20 mg PO BID tablet 01/07/17 Lactobacillus Acidophilus [Bacid -] 1 tab PO DAILY #30 tab 01/07/17 Losartan Potassium [Cozaar -] 25 mg PO DAILY #30 tablet 01/07/17 Mineral Oil/Pet Hy-Phl [Aquaphor -] 1 applic TP BID #1 jar 01/07/17 Torsemide [Demadex -] 20 mg PO DAILY #30 tablet 01/07/17 Anemia: Yes Asthma: No Cancer: No Cardiac Disorders: Yes (CAD) CVA: No COPD: No CHF: No Dementia: No Diabetes: Yes GI Disorders: Yes (SBO, VENTRAL HERNIA) Disorders: Yes (UTI) HTN: Yes Hypercholesterolemia: Yes Liver Disease: No Seizures: No Thyroid Disease: Yes (HYPOTHYROID) - Surgical History Abdominal Surgery: No Appendectomy: Yes Cardiac Surgery: No Cholecystectomy: No Lung Surgery: No Orthopedic Surgery: No - Suicide/Smoking/Psychosocial Hx Smoking Status: No Smoking History: Former smoker Have you smoked in the past 12 months: No Number of Cigarettes Smoked Daily: 0 If you are a former smoker, when did you quit?: YEARS AGO PER PT Hx Alcohol Use: No Drug/Substance Use Hx: No Substance Use Type: None Hx Substance Use Treatment: No Review of Systems - Review of Systems Able to Perform ROS?: Yes Comments:: 10/28/17 07:34 GENERAL/CONSTITUTIONAL: No fever. + chills, weakness. HEAD, EYES, EARS, NOSE AND THROAT: No change in vision. No ear pain or discharge. No sore throat. CARDIOVASCULAR: No chest pain or shortness of breath. RESPIRATORY: No cough, wheezing, or hemoptysis. GASTROINTESTINAL: No nausea, vomiting, diarrhea or constipation. GENITOURINARY: No dysuria, frequency, or change in urination. MUSCULOSKELETAL: No joint or muscle swelling or pain. No neck or back pain. SKIN: +chronic lymphedema NEUROLOGIC: No headache, vertigo, loss of consciousness, or change in strength/ sensation. ENDOCRINE: No increased thirst. No abnormal weight change. HEMATOLOGIC/LYMPHATIC: No anemia, easy bleeding, or history of blood clots. ALLERGIC/IMMUNOLOGIC: No hives or skin allergy. *Physical Exam - Physical Exam Comments: 10/28/17 07:35 GENERAL: Awake, alert, and fully oriented, in no acute distress HEAD: No signs of trauma EYES: EOMI, sclera anicteric, conjunctiva clear ENT: Auricles normal inspection, hearing grossly normal, nares patent, Moist mucosa NECK: Normal ROM, supple LUNGS: Breath sounds equal, clear to auscultation bilaterally. No wheezes, and no crackles HEART: Regular rate and rhythm, normal S1 and S2, no murmurs, rubs or gallops ABDOMEN: Soft, nontender No guarding, no rebound. No masses EXTREMITIES: Normal range of motion. + bilateral lower extremity lymphedema. No clubbing or cyanosis. No cords, erythema, or tenderness NEUROLOGICAL: Cranial nerves II through XII grossly intact. Normal speech, normal gait SKIN: Warm, Dry, normal turgor. +lower extremity lymphedema with diffuse lower bilateral anterior erythema (reportedly chronic) Heart Score/ECG Review #1 ECG reviewed & interpreted by me at: 07:25 10/28/17 07:37 NSR 61st with 1st degree AV block, low voltage QRS, no std/josé antonio, QTC 455 msec ED Treatment Course - LABORATORY CBC & Chemistry Diagram: 10/28/17 07:56 10/28/17 07:56 - RADIOLOGY Radiology Studies Ordered: Category Date Time Status CHEST X-RAY PORTABLE* [RAD] Stat Radiology 10/28/17 07:27 Ordered Medical Decision Making - Medical Decision Making 10/28/17 07:36 87 year old F c/x multiple medical problems p/w chills and generalized weakness. Differential includes UTI, bacteremia, cellulitis, metabolic disarray (given hx of DM, thyroid disorder), cardiac (hx of CHF). Will obtain labs including cultures and urine and chest xray. Reassess. 10/28/17 09:59 CBC, BMP 10/28/17 07:56 10/28/17 07:56 CMP Sodium 131 mmol/L (136-145) L 10/28/17 07:56 Potassium 3.8 mmol/L (3.5-5.1) 10/28/17 07:56 Chloride 95 mmol/L (98-107) L D 10/28/17 07:56 Carbon Dioxide 25 mmol/L (22-28) 10/28/17 07:56 Anion Gap 11 (8-16) 10/28/17 07:56 BUN 36 mg/dl (7-18) H 10/28/17 07:56 Creatinine 1.1 mg/dl (0.6-1.3) 10/28/17 07:56 Creat Clearance w eGFR 46.77 (>60) 10/28/17 07:56 Random Glucose 91 mg/dl (74-106) D 10/28/17 07:56 Calcium 8.0 mg/dl (8.4-10.2) L 10/28/17 07:56 Phosphorus 3.5 mg/dl (2.5-4.6) 10/28/17 07:56 Magnesium 2.0 mg/dL (1.8-2.4) 10/28/17 07:56 Total Bilirubin 1.2 mg/dl (0.2-1.0) H 10/28/17 07:56 AST 35 U/L (10-42) D 10/28/17 07:56 ALT 20 U/L (10-40) 10/28/17 07:56 Alkaline Phosphatase 39 U/L (32-92) 10/28/17 07:56 Troponin I < 0.03 ng/ml (0.00-0.06) 10/28/17 07:56 Total Protein 5.9 g/dl (6.4-8.3) L 10/28/17 07:56 Albumin 2.7 g/dl (3.5-5.0) L 10/28/17 07:56 Urine Test Results Urine Color Yellow 10/28/17 09:25 Urine Appearance Slightly 10/28/17 09:25 Urine pH 5.0 (4.5-8) 10/28/17 09:25 Ur Specific Springer <= 1.005 (1.005-1.025) 10/28/17 09:25 Urine Protein Negative (NEGATIVE) 10/28/17 09:25 Urine Glucose (UA) Negative (NEGATIVE) 10/28/17 09:25 Urine Ketones Trace (NEGATIVE) 10/28/17 09:25 Urine Blood Trace-intact (NEGATIVE) H 10/28/17 09:25 Urine Nitrite Negative (NEGATIVE) 10/28/17 09:25 Urine Bilirubin Negative (NEGATIVE) 10/28/17 09:25 Ur Leukocyte Esterase 2+ (NEGATIVE) H 10/28/17 09:25 Urine RBC 3-5 /hpf (0-3) 10/28/17 09:25 Urine WBC 50-80 (0-5) 10/28/17 09:25 Ur Epithelial Cells 3-5 /HPF 10/28/17 09:25 Urine Bacteria Moderate /hpf (NEGATIVE) 10/28/17 09:25 Chest xray reviewed. Cardiomegaly but no infiltrates. Pt with UTI. Microbiology reviewed. IV ceftriaxone ordered. Given patient's overall weakness and that she lives by herself, will admit for UTI. *DC/Admit/Observation/Transfer Diagnosis at time of Disposition: UTI (urinary tract infection) Qualifiers: Urinary tract infection type: site unspecified Hematuria presence: without hematuria Qualified Code(s): N39.0 - Urinary tract infection, site not specified - Discharge Dispostion Condition at time of disposition: Stable Decision to Admit order: Yes - Referrals - Patient Instructions - Post Discharge Activity
[2017-10-28 08:32] LABS: BASO % 0.3 % (0-2.0); EOS % 1.2 % (0-4.5); HEMATOCRIT 32.3 % (32.4-45.2); MCH 28.4 pg (25.7-33.7); MCHC 34.1 g/dl (32.0-36.0); MEAN CELL VOLUME 83.2 fl (80-96); MONO % 11.8 % (3.8-10.2); NEUT % 78.7 % (42.8-82.8); PLATELET COUNT 157 K/MM3 (134-434); RBC 3.88 M/mm3 (3.60-5.2); WHITE BLOOD COUNT 6.7 K/mm3 (4.0-10.8)
[2017-10-28 08:38] LABS: ALBUMIN 2.7 g/dl (3.5-5.0); ALK PHOS 39 U/L (32-92); ANION GAP 11 (8-16); BILIRUBIN,TOTAL 1.2 mg/dl (0.2-1.0); BLOOD UREA NITROGEN 36 mg/dl (7-18); CHLORIDE 95 mmol/L (98-107); CO2 25 mmol/L (22-28); CREATININE 1.1 mg/dl (0.6-1.3); GLUCOSE,RANDOM 91 mg/dl (74-106); PHOSPHOROUS 3.5 mg/dl (2.5-4.6); POTASSIUM 3.8 mmol/L (3.5-5.1); SGOT/AST 35 U/L (10-42); SGPT/ALT 20 U/L (10-40); SODIUM 131 mmol/L (136-145); TOT PROT 5.9 g/dl (6.4-8.3)
[2017-10-28 08:45] LABS: ACTIVATED PTT 24.6 SECONDS (25.2-36.5)
[2017-10-28 08:49] LABS: INR 1.08 (0.82-1.09); PROTHROMBIN TIME (PATIENT) 12.1 SEC (10.2-13.0)
[2017-10-28 09:27] LABS: URINE APPEARANCE Slightly; URINE BILIRUBIN Negative (NEGATIVE); URINE COLOR Yellow; URINE GLUCOSE (UA) Negative (NEGATIVE); URINE KETONE Trace (NEGATIVE); URINE NITRITE Negative (NEGATIVE); URINE PROTEIN Negative (NEGATIVE)
[2017-10-28 09:28] LABS: URINE LEUK ESTERASE 2+ (NEGATIVE)
[2017-10-28 09:46] LABS: URINE BACTERIA MODERATE /hpf (NEGATIVE); URINE WBC 50-80 (0-5)
[2017-10-28] MEDS ORDERED: CEFTRIAXONE 1,000 MG in DEXTROSE 5%-WATER - 50 ML IVPB ONE (09:54)
[2017-10-28] MEDS ORDERED: cefTRIAXone SODIUM 1 GM VIAL ONE (10:18)
--- NOTE | 2017-10-28 10:19 | HP ---
CHIEF COMPLAINT: generalized weakness PCP:Dr. 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 patient reports generalized weakness for the past week. She denies any pain. Patient denies any shortness of breath or syncopal episodes. Patient is tolerating regular diet ER course was notable for: (1)urinalysis +2 leukocytes (2)chest x-ray, cardiomegaly no evidence of pulmonary disease (3)temp 98.8 Recent Travel:none PAST MEDICAL HISTORY:see history of present illness PAST SURGICAL HISTORY:esarean section 3, appendectomy Social History:retired, resides at home alone Smoking:none Alcohol:none Drugs: none Family History:noncontributory to this admission Allergies No Known Allergies Allergy (Verified 10/28/17 07:33) HOME MEDICATIONS: Home Medications Medication Instructions Recorded Atorvastatin Ca [Lipitor] 20 mg PO HS 01/03/17 Ketoconazole 2% Cream [Nizoral 2% 1 applic TP DAILY 01/03/17 Cream -] Levothyroxine [Synthroid -] 75 mcg PO DAILY 01/03/17 Metformin HCl [Metformin HCl ER] 1,000 mg PO DAILY 01/03/17 Nystatin Powder [Nystop Powder -] 0 gm TP BID 01/03/17 Acetaminophen [Tylenol .Regular 650 mg PO Q6H PRN #0 tablet 01/07/17 Strength -] Aspirin [ASA -] 81 mg PO DAILY #30 tab.chew 01/07/17 Famotidine [Pepcid -] 20 mg PO BID tablet 01/07/17 Lactobacillus Acidophilus [Bacid -] 1 tab PO DAILY #30 tab 01/07/17 Losartan Potassium [Cozaar -] 25 mg PO DAILY #30 tablet 01/07/17 Mineral Oil/Pet Hy-Phl [Aquaphor -] 1 applic TP BID #1 jar 01/07/17 Torsemide [Demadex -] 20 mg PO DAILY #30 tablet 01/07/17 REVIEW OF SYSTEMS CONSTITUTIONAL: Present: generalized weakness, malaise absent: fever, chills, diaphoresis, , loss of appetite, weight change HEENT: Absent: rhinorrhea, nasal congestion, throat pain, throat swelling, difficulty swallowing, mouth swelling, ear pain, eye pain, visual changes CARDIOVASCULAR: Absent: chest pain, syncope, palpitations, irregular heart rate, lightheadedness , peripheral edema RESPIRATORY: Absent: cough, shortness of breath, dyspnea with exertion, orthopnea, wheezing, stridor, hemoptysis GASTROINTESTINAL: Absent: abdominal pain, abdominal distension, nausea, vomiting, diarrhea, constipation, melena, hematochezia GENITOURINARY: Absent: dysuria, frequency, urgency, hesitancy, hematuria, flank pain, genital pain MUSCULOSKELETAL: Absent: myalgia, arthralgia, joint swelling, back pain, neck pain SKIN: Absent: rash, itching, pallor HEMATOLOGIC/IMMUNOLOGIC: Absent: easy bleeding, easy bruising, lymphadenopathy, frequent infections ENDOCRINE: Absent: unexplained weight gain, unexplained weight loss, heat intolerance, cold intolerance NEUROLOGIC: Absent: headache, focal weakness or paresthesias, dizziness, unsteady gait, seizure, mental status changes, bladder or bowel incontinence PSYCHIATRIC: Absent: anxiety, depression, suicidal or homicidal ideation, hallucinations. PHYSICAL EXAMINATION Vital Signs - 24 hr 10/28/17 07:15 Temperature 97.8 F Pulse Rate 77 Respiratory 20 Rate Blood Pressure 129/63 O2 Sat by Pulse 98 Oximetry (%) GENERAL: Awake, alert, and fully oriented, in no acute distress. HEAD: Normal with no signs of trauma. EYES: Pupils equal, round and reactive to light, extraocular movements intact, sclera anicteric, conjunctiva clear. No lid lag. EARS, NOSE, THROAT: Ears normal, nares patent, oropharynx clear without exudates. Moist mucous membranes. NECK: Normal range of motion, supple without lymphadenopathy, JVD, or masses. LUNGS: Breath sounds equal, clear to auscultation bilaterally. No wheezes, and no crackles. No accessory muscle use. HEART: Regular rate and rhythm, normal S1 and S2 without murmur, rub or gallop. ABDOMEN: Soft, reducible ventral hernia nontender, not distended, normoactive bowel sounds, no guarding, no rebound, no masses. No hepatomegaly or splenomegaly. MUSCULOSKELETAL: Normal range of motion at all joints. No bony deformities or tenderness. No CVA tenderness. UPPER EXTREMITIES: 2+ pulses, warm, well-perfused. No cyanosis. No clubbing. No peripheral edema. LOWER EXTREMITIES: 2+ pulses, warm, well-perfused. No calf tenderness. + 2 LE edema, venostasis changes (chronic as per patient) NEUROLOGICAL: Cranial nerves II-XII intact. Normal speech. Normal gait. PSYCHIATRIC: Cooperative. Good eye contact. Appropriate mood and affect. SKIN: Warm, dry, normal turgor, no rashes or lesions noted, normal capillary refill. Laboratory Results - last 24 hr 10/28/17 10/28/17 10/28/17 07:56 07:56 07:56 WBC 6.7 RBC 3.88 Hgb 11.0 Hct 32.3 L MCV 83.2 MCH 28.4 MCHC 34.1 RDW 14.0 Plt Count 157 MPV 9.0 Absolute Neuts (auto) 5.3 Neutrophils % 78.7 Lymphocytes % 8.0 Monocytes % 11.8 H Eosinophils % 1.2 Basophils % 0.3 PT with INR 12.1 INR 1.08 PTT (Actin FS) 24.6 L Sodium 131 L Potassium 3.8 Chloride 95 L D Carbon Dioxide 25 Anion Gap 11 BUN 36 H Creatinine 1.1 Creat Clearance w eGFR 46.77 Random Glucose 91 D Lactic Acid Calcium 8.0 L Phosphorus 3.5 Magnesium 2.0 Total Bilirubin 1.2 H AST 35 D ALT 20 Alkaline Phosphatase 39 Troponin I Total Protein 5.9 L Albumin 2.7 L TSH 0.97 Urine Color Urine Appearance Urine pH Ur Specific [place] Urine Protein Urine Glucose (UA) Urine Ketones Urine Blood Urine Nitrite Urine Bilirubin Urine Urobilinogen Ur Leukocyte Esterase Urine RBC Urine WBC Ur Epithelial Cells Urine Bacteria 10/28/17 10/28/17 10/28/17 07:56 07:56 09:25 WBC RBC Hgb Hct MCV MCH MCHC RDW Plt Count MPV Absolute Neuts (auto) Neutrophils % Lymphocytes % Monocytes % Eosinophils % Basophils % PT with INR INR PTT (Actin FS) Sodium Potassium Chloride Carbon Dioxide Anion Gap BUN Creatinine Creat Clearance w eGFR Random Glucose Lactic Acid 1.3 Calcium Phosphorus Magnesium Total Bilirubin AST ALT Alkaline Phosphatase Troponin I < 0.03 Total Protein Albumin TSH Urine Color Yellow Urine Appearance Slightly Urine pH 5.0 Ur Specific [place] <= 1.005 Urine Protein Negative Urine Glucose (UA) Negative Urine Ketones Trace Urine Blood Trace-intact H Urine Nitrite Negative Urine Bilirubin Negative Urine Urobilinogen 1.0 Ur Leukocyte Esterase 2+ H Urine RBC 3-5 Urine WBC 50-80 Ur Epithelial Cells 3-5 Urine Bacteria Moderate ASSESSMENT/PLAN: 1) uti - hx of ecoli, kleb in past, will continue rocephin - trend wbc and fever curve 2) cardiovascular diastolic congestive heart failure - patient appears euvolemic on exam, continue torsemide - strict i/o and daily weight hypertension - contine loosartan, b/p at goal 3) endo hypothyroidism - continue synthroid DM - continue metformin f/e/n - low sodium diabetic diet - Replete electrolytes when necessary ppx - heparin sq physical therapy dispo: pt requires obsv admission Visit type - Emergency Visit Emergency Visit: Yes ED Registration Date: 10/28/17 Care time: The patient presented to the Emergency Department on the above date and was hospitalized for further evaluation of their emergent condition. - New Patient This patient is new to me today: Yes Date on this admission: 10/29/17 - Critical Care Critical Care patient: No Hospitalist Screening - Colonoscopy Questionnaire Colonoscopy Questionnaire: Colonoscopy Questionnaire - Patient: 50 - 75 years old and never had a screening colonoscopy: No History of colon or rectal polyps, or CA: No History of IBD, Crohn's disease or UC: No History of abdominal radiation therapy as a child: No - Relative: 1 with colon or rectal CA, or polyps at age 60 or younger: No Colon or rectal CA diagnosed at age 45 or younger: No Multiple relatives with colon or rectal CA: No - Outcome: Screening Result: Negative Screen
[2017-10-28] MEDS ORDERED: ACETAMINOPHEN 325 MG TABLET (FP) PO PRN (10:58)
[2017-10-28] MEDS: TORSEMIDE 20 MG TABLET (FP) PO SCH (12:11)
[2017-10-28] MEDS: LOSARTAN POTASSIUM 25 MG TABLET PO SCH (12:11)
[2017-10-28 12:52] VITALS: BMI 33.8
[2017-10-28] MEDS: HEPARIN NA (PORCINE) 5,000 UNITS/ML 1ML VIAL SQ SCH (21:14)
[2017-10-28] MEDS: POTASSIUM CHLORIDE TABS 20 MEQ TABLET.ER (FP) PO SCH (21:14)
[2017-10-28] MEDS ORDERED: PATIENT'S OWN MEDICATION (NON-FORMULARY) (Potassium Chloride [K-Tab Er] 20 MEQ) PO SCH (22:00)
[2017-10-28] MEDS: MINERAL OIL/PET HY-PHL TOPICAL OINTMENT 454 GM JAR TP SCH (22:16)
[2017-10-29] MEDS: LEVOTHYROXINE NA 75 MCG TABLET (FP) PO SCH (06:13)
[2017-10-29 08:28] LABS: BASO % 0.4 % (0-2.0); HEMATOCRIT 31.1 % (32.4-45.2); HEMOGLOBIN 10.5 GM/dl (10.7-15.3); LYMPH % 8.6 % (8-40); MCH 28.1 pg (25.7-33.7); MCHC 33.9 g/dl (32.0-36.0); MEAN CELL VOLUME 82.8 fl (80-96); MEAN PLT VOLUME 8.5 fl (7.5-11.1); MONO % 12.9 % (3.8-10.2); NEUT % 76.1 % (42.8-82.8); PLATELET COUNT 164 K/MM3 (134-434); RBC 3.75 M/mm3 (3.60-5.2); RDW 13.9 % (11.6-15.6)
[2017-10-29 08:43] LABS: ANION GAP 5 (8-16); BLOOD UREA NITROGEN 32 mg/dl (7-18); CALCIUM 7.4 mg/dl (8.4-10.2); CHLORIDE 99 mmol/L (98-107); CO2 27 mmol/L (22-28); GLUCOSE,RANDOM 112 mg/dl (74-106); MAGNESIUM 1.9 mg/dL (1.8-2.4); PHOSPHOROUS 2.8 mg/dl (2.5-4.6); POTASSIUM 3.4 mmol/L (3.5-5.1); SODIUM 131 mmol/L (136-145)
[2017-10-29] MEDS ORDERED: POTASSIUM CHLORIDE TABS 20 MEQ TABLET.ER (FP) PO ONE (09:30)
[2017-10-29] MEDS: TORSEMIDE 20 MG TABLET (FP) PO SCH (09:57)
[2017-10-29] MEDS: ASPIRIN 81 MG CHEWABLE TABLETS PO SCH (09:57)
[2017-10-29] MEDS: MINERAL OIL/PET HY-PHL TOPICAL OINTMENT 454 GM JAR TP SCH ×2 (09:57→21:39)
[2017-10-29] MEDS: LACTOBACILLUS ACIDOPHILUS 1 TABLET PO SCH (09:58)
[2017-10-29] MEDS: LOSARTAN POTASSIUM 25 MG TABLET PO SCH (09:58)
[2017-10-29] MEDS: HEPARIN NA (PORCINE) 5,000 UNITS/ML 1ML VIAL SQ SCH ×2 (09:58→21:40)
--- NOTE | 2017-10-29 10:16 | PN ---
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 Vital Signs Period Temp Pulse Resp BP Sys/Anderson Pulse Ox Last 24 Hr 97.8 F-98.8 F 55-76 18-20 100-111/32-73 98-99 GENERAL: Awake, alert, and fully oriented, in no acute distress. HEAD: Normal with no signs of trauma. EYES: Pupils equal, round and reactive to light, extraocular movements intact, sclera anicteric, conjunctiva clear. No lid lag. EARS, NOSE, THROAT: Ears normal, nares patent, oropharynx clear without exudates. Moist mucous membranes. NECK: Normal range of motion, supple without lymphadenopathy, JVD, or masses. LUNGS: Breath sounds equal, clear to auscultation bilaterally. No wheezes, and no crackles. No accessory muscle use. HEART: Regular rate and rhythm, normal S1 and S2 without murmur, rub or gallop. ABDOMEN: Soft, reducible ventral hernia nontender, not distended, normoactive bowel sounds, no guarding, no rebound, no masses. No hepatomegaly or splenomegaly. MUSCULOSKELETAL: Normal range of motion at all joints. No bony deformities or tenderness. No CVA tenderness. UPPER EXTREMITIES: 2+ pulses, warm, well-perfused. No cyanosis. No clubbing. No peripheral edema. LOWER EXTREMITIES: 2+ pulses, warm, well-perfused. No calf tenderness. + 1 LE edema, venostasis changes (chronic as per patient) NEUROLOGICAL: Cranial nerves II-XII intact. Normal speech. Normal gait. PSYCHIATRIC: Cooperative. Good eye contact. Appropriate mood and affect. SKIN: Warm, dry, normal turgor, no rashes or lesions noted, normal capillary refill. Laboratory Results - last 24 hr 10/28/17 10/29/17 10/29/17 21:14 05:58 08:10 WBC 7.0 RBC 3.75 Hgb 10.5 L Hct 31.1 L MCV 82.8 MCH 28.1 MCHC 33.9 RDW 13.9 Plt Count 164 MPV 8.5 Absolute Neuts (auto) 5.4 Neutrophils % 76.1 Lymphocytes % 8.6 Monocytes % 12.9 H Eosinophils % 2.0 Basophils % 0.4 Sodium Potassium Chloride Carbon Dioxide Anion Gap BUN Creatinine Creat Clearance w eGFR POC Glucometer 145 103 Random Glucose Calcium Phosphorus Magnesium 10/29/17 08:10 WBC RBC Hgb Hct MCV MCH MCHC RDW Plt Count MPV Absolute Neuts (auto) Neutrophils % Lymphocytes % Monocytes % Eosinophils % Basophils % Sodium 131 L Potassium 3.4 L Chloride 99 Carbon Dioxide 27 Anion Gap 5 L BUN 32 H Creatinine 1.0 Creat Clearance w eGFR 52.20 POC Glucometer Random Glucose 112 H D Calcium 7.4 L Phosphorus 2.8 Magnesium 1.9 Active Medications Generic Name Dose Route Start Last Admin Trade Name Freq PRN Reason Stop Dose Admin Acetaminophen 650 mg 10/28/17 10:58 Tylenol - PO Q6H PRN FEVER Aspirin 81 mg 10/29/17 10:00 10/29/17 09:57 Asa - PO 81 mg DAILY DICK Administration Atorvastatin Calcium 20 mg 10/29/17 22:00 Lipitor - PO HS DICK Emollient Ointment 1 applic 10/28/17 22:00 10/29/17 09:57 Aquaphor - TP 1 applic BID DICK Administration Heparin Sodium (Porcine) 5,000 unit 10/28/17 22:00 10/29/17 09:58 Heparin - SQ 5,000 unit BID DICK Administration Lactobacillus Acidophilus 1 tab 10/29/17 10:00 10/29/17 09:58 Bacid - PO 1 tab DAILY DICK Administration Levothyroxine Sodium 75 mcg 10/29/17 07:00 10/29/17 06:13 Synthroid - PO 75 mcg DAILY@0700 DICK Administration Losartan Potassium 25 mg 10/28/17 11:30 10/29/17 09:58 Cozaar - PO Not Given DAILY DICK Metformin HCl 1,000 mg 10/29/17 07:30 10/29/17 07:41 Glucophage Xr - PO 1,000 mg DAILY@0730 DICK Administration Potassium Chloride 20 meq 10/28/17 22:00 10/28/17 21:14 K-Dur - PO 20 meq BID DICK Administration Torsemide 20 mg 10/28/17 11:30 10/29/17 09:57 Demadex - PO 20 mg DAILY DICK Administration Microbiology 10/28/17 09:25 Urine - Urine Clean Catch Urine Culture - Preliminary Lactose Fermenting Neg Bacilli 10/28/17 08:05 Blood - Peripheral Venous Blood Culture - Preliminary NO GROWTH OBTAINED AFTER 24 HOURS, INCUBATION TO CONTINUE FOR 4 DAYS. 10/28/17 07:50 Blood - Peripheral Venous Blood Culture - Preliminary NO GROWTH OBTAINED AFTER 24 HOURS, INCUBATION TO CONTINUE FOR 4 DAYS. IMAGING chest x-ray, cardiomegaly no evidence of pulmonary disease ASSESSMENT/PLAN: 1) uti - prelim urine culture, + lactose fermenting urine, hx of ecoli, kleb in past, will continue rocephin - trend wbc and fever curve 2) cardiovascular diastolic congestive heart failure - patient appears euvolemic on exam, continue torsemide - strict i/o and daily weight hypertension - contine loosartan, b/p at goal 3) endo hypothyroidism - continue synthroid DM - continue metformin f/e/n - low sodium diabetic diet - Replete electrolytes when necessary ppx - heparin sq physical therapy dispo: pt requires obsv admission Visit type - Emergency Visit Emergency Visit: Yes ED Registration Date: 10/28/17 Care time: The patient presented to the Emergency Department on the above date and was hospitalized for further evaluation of their emergent condition. - New Patient This patient is new to me today: No - Critical Care Critical Care patient: No - Discharge Referral Referred to [facility] Med [facility] No
[2017-10-29] MEDS: POTASSIUM CHLORIDE TABS 20 MEQ TABLET.ER (FP) PO SCH ×2 (10:48→21:39)
[2017-10-29] MEDS: CEFTRIAXONE 1 GM/50 ML BAG IVPB SCH (13:58)
--- NOTE | 2017-10-29 17:01 | EKG ---
Test Reason : Blood Pressure : / mmHG Vent. Rate : 061 BPM Atrial Rate : 061 BPM P-R Int : 222 ms QRS Dur : 072 ms QT Int : 452 ms P-R-T Axes : 083 026 047 degrees QTc Int : 455 ms SINUS RHYTHM WITH 1ST DEGREE A-V BLOCK LOW VOLTAGE QRS BORDERLINE ECG WHEN COMPARED WITH ECG OF 03-JAN-2017 13:06, NONSPECIFIC T WAVE ABNORMALITY NO LONGER EVIDENT IN LATERAL LEADS Confirmed by MD Daysi, Shayne ([id number]) on 10/29/2017 5:01:33 PM Referred By: DARA Confirmed By:Shayne Tavarez MD
[2017-10-29] MEDS ORDERED: ATORVASTATIN CA 20 MG TABLET (FP) PO SCH (22:00)
[2017-10-30] MEDS: LEVOTHYROXINE NA 75 MCG TABLET (FP) PO SCH (06:04)
[2017-10-30] MEDS: ASPIRIN 81 MG CHEWABLE TABLETS PO SCH (09:05)
[2017-10-30] MEDS: CEFTRIAXONE 1 GM/50 ML BAG IVPB SCH (09:58)
[2017-10-30] MEDS: HEPARIN NA (PORCINE) 5,000 UNITS/ML 1ML VIAL SQ SCH (09:58)
[2017-10-30] MEDS: LACTOBACILLUS ACIDOPHILUS 1 TABLET PO SCH (09:59)
[2017-10-30] MEDS: MINERAL OIL/PET HY-PHL TOPICAL OINTMENT 454 GM JAR TP SCH (09:59)
[2017-10-30] MEDS: TORSEMIDE 20 MG TABLET (FP) PO SCH (09:59)
[2017-10-30] MEDS: POTASSIUM CHLORIDE TABS 20 MEQ TABLET.ER (FP) PO SCH (09:59)
[2017-10-30] MEDS: LOSARTAN POTASSIUM 25 MG TABLET PO SCH (09:59)
--- NOTE | 2017-10-30 12:12 | DS ---
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 patient reports generalized weakness for the past week. She denies any pain. Patient denies any shortness of breath or syncopal episodes. Patient is tolerating regular diet ER course was notable for: (1)urinalysis +2 leukocytes (2)chest x-ray, cardiomegaly no evidence of pulmonary disease (3)temp 98.8 Vital Signs Period Temp Pulse Resp BP Sys/Anderson Pulse Ox Last 24 Hr 97.8 F-98.5 F 58-64 19-20 96-115/30-68 95-100 PHYSICAL EXAM GENERAL: Awake, alert, and fully oriented, in no acute distress. HEAD: Normal with no signs of trauma. EYES: Pupils equal, round and reactive to light, extraocular movements intact, sclera anicteric, conjunctiva clear. No lid lag. EARS, NOSE, THROAT: Ears normal, nares patent, oropharynx clear without exudates. Moist mucous membranes. NECK: Normal range of motion, supple without lymphadenopathy, JVD, or masses. LUNGS: Breath sounds equal, clear to auscultation bilaterally. No wheezes, and no crackles. No accessory muscle use. HEART: Regular rate and rhythm, normal S1 and S2 without murmur, rub or gallop. ABDOMEN: Soft, reducible ventral hernia nontender, not distended, normoactive bowel sounds, no guarding, no rebound, no masses. No hepatomegaly or splenomegaly. MUSCULOSKELETAL: Normal range of motion at all joints. No bony deformities or tenderness. No CVA tenderness. UPPER EXTREMITIES: 2+ pulses, warm, well-perfused. No cyanosis. No clubbing. No peripheral edema. LOWER EXTREMITIES: 2+ pulses, warm, well-perfused. No calf tenderness. + 2 LE edema, venostasis changes (chronic as per patient) NEUROLOGICAL: Cranial nerves II-XII intact. Normal speech. Normal gait. PSYCHIATRIC: Cooperative. Good eye contact. Appropriate mood and affect. SKIN: Warm, dry, normal turgor, no rashes or lesions noted, normal capillary refill. LABS Laboratory Results - last 24 hr 10/29/17 10/30/17 10/30/17 16:21 05:51 11:32 POC Glucometer 196 125 210 Microbiology 10/28/17 09:25 Urine - Urine Clean Catch Urine Culture - Final Escherichia Coli 10/28/17 08:05 Blood - Peripheral Venous Blood Culture - Preliminary NO GROWTH OBTAINED AFTER 48 HOURS, INCUBATION TO CONTINUE FOR 3 DAYS. 10/28/17 07:50 Blood - Peripheral Venous Blood Culture - Preliminary NO GROWTH OBTAINED AFTER 48 HOURS, INCUBATION TO CONTINUE FOR 3 DAYS. IMAGING chest x-ray, cardiomegaly no evidence of pulmonary disease HOSPITAL COURSE: patient was admitted from the emergency department observation for generalized weakness secondary to acute urinary tract infection, Urine culture notable for Escherichia coli patient was treated with 3 days of IV Rocephin. leukocytosis resolved and patient maintained afebrile throughout admission. patient ambulated with the physical therapist evaluation completed and advised rolling walker, patient is able to ambulate 260 feet with rolling walker. grissom does have a past medical history of diastolic congestive heart failure patient remained euvolemic throughout admission. Home dose torsemide continued throughout admission. Losartan home dose continued on admission blood pressure remained at goal. PLAN: - Discharged home with VNS - transition to Ceftin 250 mg twice a day for 7 days. - Strict follow-up with primary care physician Dr. Steward within 7 days for repeat urinalysis and urine culture - Return precautions reviewed i.e. chest pain dizziness shortness of breath patient must return to emergency department. Date of Admission:10/28/17 Date of Discharge: 10/30/17 Discharge Summary Reason For Visit: URINARY TRACT INFECTION Current Active Problems UTI (urinary tract infection) (Acute) Condition: Stable - Instructions - Home Medications Comprehensive Discharge Medication List: Ambulatory Orders Atorvastatin Ca [Lipitor] 20 mg PO DAILY 01/03/17 Ketoconazole 2% Cream [Nizoral 2% Cream -] 1 applic TP DAILY 01/03/17 Metformin HCl [Metformin HCl ER] 1,000 mg PO DAILY 01/03/17 Acetaminophen [Tylenol .Regular Strength -] 650 mg PO Q6H PRN #0 tablet Aspirin [ASA -] 81 mg PO DAILY #30 tab.chew 01/07/17 Lactobacillus Acidophilus [Bacid -] 1 tab PO DAILY #30 tab 01/07/17 Losartan Potassium [Cozaar -] 25 mg PO DAILY #30 tablet 01/07/17 Mineral Oil/Pet Hy-Phl [Aquaphor -] 1 applic TP BID #1 jar 01/07/17 Torsemide [Demadex -] 20 mg PO DAILY #30 tablet 01/07/17 Fluticasone Propionate [Flonase Allergy Relief] 15.8 ml NS DAILY PRN 10/28/17 Levothyroxine [Synthroid -] 75 mcg PO DAILY 10/28/17 Potassium Chloride [K-Tab ER] 20 meq PO BID 10/28/17 - Discharge Referral Referred to [facility] Med [facility].: No
[2017-10-30 12:40] VITALS: BP 108/66; PULSE 66; TEMP 98
== END 2017-10-30 13:52 | disposition home health service (06) ==
LOC: SUPCPDRO 07:15 → FER 07:15 → FM/S 10:43
PROVIDERS: ADMIT Internal Medicine; ATTEND Nurse Practitioner Family
PROC: 3E03329 Introduction of Other Anti-infective into Peripheral Vein, Percutaneous Approach (ICD-10-PCS; principal; 2017-10-28)
PROC: 3E013GC Introduction of Other Therapeutic Substance into Subcutaneous Tissue, Percutaneous Approach (ICD-10-PCS; 2017-10-28)
DX: N39.0 Urinary tract infection, site not specified (principal); I11.0 Hypertensive heart disease with heart failure; I50.30 Unspecified diastolic (congestive) heart failure; E11.9 Type 2 diabetes mellitus without complications; E78.5 Hyperlipidemia, unspecified; E03.9 Hypothyroidism, unspecified; D64.9 Anemia, unspecified; Z79.82 Long term (current) use of aspirin; Z79.84 Long term (current) use of oral hypoglycemic drugs; Z87.440 Personal history of urinary (tract) infections; Z87.891 Personal history of nicotine dependence
CPT/HCPCS: 36415; 71045-TC-FY; 80048; 80053; 81003; 81015; 82962; 83605; 83735; 84100; 84443; 84484; 85025; 85610; 85730; 87040; 87086; 87186; 93005; 97116-GP; 97161-GP; 99283-25; G0378; J1644

== ENCOUNTER 2018-01-12 09:40 | Emergency (ER) | payer OTHER ==
[2018-01-12 09:47] VITALS: TEMP 97.5; BMI 34.3
--- NOTE | 2018-01-12 09:56 | PDOC ---
History of Present Illness - General Chief Complaint: Respiratory Stated Complaint: COUGH, RUNNY NOSE Time Seen by Provider: 01/12/18 09:43 - History of Present Illness Initial Comments: 87yo F with history of DM and hypothyroid presenting with cough and runny nose x 2weeks. The cough is productive of white sputum. Patient has not tried anything at home for her symptoms, except for hot tea with lemon. She presents today because she is not able to see her primary care doctor until Saturday and is concerned that her cough has lasted for so long. Denies shortness of breath or dyspnea on exertion. No fever, chills, chest pain, or abdominal pain. No sick contacts or recent travel. Past History - Past Medical History Allergies/Adverse Reactions: Allergies Allergy/AdvReac Type Severity Reaction Status Date / Time No Known Allergies Allergy Verified 01/12/18 09:42 Home Medications: Ambulatory Orders Guaifenesin/Dextromethorphan [Robitussin Cough-Chest Dm Liq] 237 ml PO Q4H PRN # 1 bottle 01/12/18 Levothyroxine [Synthroid -] 75 mcg PO DAILY 01/12/18 Metformin HCl [Glucophage] 500 mg PO DAILY 01/12/18 Potassium Chloride [K-Dur -] 20 meq PO DAILY 01/12/18 Torsemide 20 mg PO DAILY 01/12/18 Anemia: Yes Asthma: No Cancer: No Cardiac Disorders: Yes (CAD) CVA: No COPD: No CHF: No Dementia: No Diabetes: Yes GI Disorders: Yes (SBO, VENTRAL HERNIA) Disorders: Yes (UTI) HTN: Yes Hypercholesterolemia: Yes Liver Disease: No Seizures: No Thyroid Disease: Yes (HYPOTHYROID) - Surgical History Abdominal Surgery: No Appendectomy: Yes Cardiac Surgery: No Cholecystectomy: No Lung Surgery: No Orthopedic Surgery: No - Suicide/Smoking/Psychosocial Hx Smoking Status: No Smoking History: Former smoker Have you smoked in the past 12 months: No Number of Cigarettes Smoked Daily: 0 If you are a former smoker, when did you quit?: YEARS AGO PER PT Information on smoking cessation initiated: No Hx Alcohol Use: No Drug/Substance Use Hx: No Substance Use Type: None Hx Substance Use Treatment: No Review of Systems - Review of Systems Comments:: Constitutional: no fever, no chills HEENT: no throat pain, no dysphagia Cardiovascular: no chest pain, no palpitations Respiratory: +cough, no shortness of breath Gastrointestinal: no abdominal pain, no nausea, no vomiting Genitourinary: no dysuria, no frequency Musculoskeletal: no myalgia, no arthralgia Skin: no rash, no itching Neurologic: no headache, no dizziness *Physical Exam - Vital Signs Last Vital Signs Temp Pulse Resp BP Pulse Ox 97.5 F L 92 H 20 179/78 H 97 01/12/18 09:40 01/12/18 09:40 01/12/18 09:40 01/12/18 09:40 01/12/18 09:40 - Physical Exam Comments: General: Awake, alert, and fully oriented, in no acute distress Head: no signs of trauma Eyes: EOMI, sclera anicteric ENT: Moist mucus membranes Neck: Normal ROM, supple Lungs: Lungs clear, Normal breath sounds Cardio: Regular rhythm, S1 and S2 present Abdomen: Soft, nontender. Extremities: Normal range of motion, Distal pulses present, BLE with non- pitting edema SKIN: Warm, Dry, normal turgor Neurologic: Cranial nerves II through XII grossly intact. Normal speech Medical Decision Making - Medical Decision Making 87yo F with history of DM and hypothyroid presenting with cough and runny nose x 2weeks. -DDX includes but not limited to: upper respiratory infection, bronchitis, bronchiectasis, pneumonia, congestive heart failure -CXR: no acute pathology -Guaifenesin: improved patients symptoms -Likely URI due to negative CXR -Sent prescription to pharmacy *DC/Admit/Observation/Transfer Diagnosis at time of Disposition: Cough - Discharge Dispostion Disposition: HOME Condition at time of disposition: Stable - Prescriptions Prescriptions: Guaifenesin/Dextromethorphan [Robitussin Cough-Chest Dm Liq] 237 ml PO Q4H PRN # 1 bottle PRN Reason: Cough - Referrals Referrals: Yanni Steward [Primary Care Provider] - - Patient Instructions Printed Discharge Instructions: DI for Cough -- Adult Additional Instructions: You came to the ED for a cough. Your symptoms improved with medicine for which a prescription was sent to your pharmacy. Take as needed. Follow-up with your primary care physician, Dr. Steward, at your appointment on Saturday. RETURN if: you have shortness of breath, throat tightening, lightheadedness, or develop any other new or concerning symptoms. - Post Discharge Activity
[2018-01-12] MEDS ORDERED: guaiFENesin 200 MG/10 ML 10 ML UNIT-DOSE CUPS PO ONE (10:03)
--- NOTE | 2018-01-12 10:03 | PDOC ---
Attending Attestation - Resident Resident Name: Alyse Hargrove - ED Attending Attestation I have performed the following: I have examined & evaluated the patient, The case was reviewed & discussed with the resident, I agree w/resident's findings & plan, Exceptions are as noted - HPI HPI: 01/12/18 11:03 Nonproductive cough, worsened night, present for several weeks but worse the last 2 days. Denies fever/chills, chest pain, shortness of breath, abdominal pain, nausea, vomiting, diarrhea, urinary tract symptoms, vaginal bleeding or discharge. Remainder systems reviewed and found to be negative. Specifically, the patient states that she has no increased shortness of breath either at rest or with exertion compared to her usual mild dyspnea on exertion. - Physicial Exam PE: 01/12/18 11:04 Physical exam: Afebrile, mildly elevated blood pressure, respiratory rate normal , unlabored at rest, and O2 saturation 97% HEENT clear Neck supple without bruit mass or nodes Occasional end expiratory wheezes heard at both bases, clearing with cough. No rales or rhonchi. CV S1 and S2 normal without murmur rub or gallop pulses full and symmetric. Mild dependent edema which the patient states is chronic and unchanged Abdomen: Moderate obesity but soft nontender without mass or organomegaly - Medical Decision Making 01/12/18 11:05 Assessment: Viral URI with cough versus viral bronchitis. Symptoms mild. Rule out pneumonia Plan: X-ray is negative for consolidation. There is evidence of cardiomegaly and mild CHF. Since this is most likely viral, no antibiotics were prescribed. Symptomatic treatment and close follow-up if condition worsens or if there is fever, increased cough, chest pain or shortness of breath. Patient fully ambulatory and in no distress respiratory or otherwise at discharge to follow- up as directed
[2018-01-12] MEDS ORDERED: guaiFENesin/D-METHORPHAN HB 10 ML UNIT-DOSE CUPS ONE (10:06)
[2018-01-12 11:30] VITALS: BP 123/51; PULSE 78
== END 2018-01-12 11:45 | disposition home or self-care (01) ==
LOC: FER 09:40
DX: R05 Cough (principal)
CPT/HCPCS: 71046-TC-FY; 99283-25